=== PATIENT | female | born 1990 | race Caucasian/White ===

== ENCOUNTER 2017-03-07 08:30 | Outpatient (RCR) | payer OTHER, SELFPAY ==
[2017-02-17 00:56] VITALS: BP 130/68; PULSE 99; RESP 18; TEMP 36.5; BMI 48.0
[2017-02-21 08:41] VITALS: BP 131/77; PULSE 82; RESP 20; TEMP 36.4; BMI 48.0
--- NOTE | 2017-02-21 17:28 | PCM.WC.PN ---
Type of Wound Date of Service: 02/21/17 Chief Complaint: Ulceration of the right lateral malleolus and wound to the right dorsomedial foot History of Wound: This is a 26-year-old female who was born with spina bifida. As result, she is paraplegic and insensate below the waist. She is also morbidly obese. She presents with a pressure ulceration on the right lateral malleolus, which is a recurrent ulceration, having been treated at the wound center in the past for similar problems. There is also a wound/ulceration on the dorsal medial right foot, likely due to trauma or pressure. The patient is currently using collagenase Santyl topically on a daily basis. She was recently evaluated by her primary care physician, who obtained cultures, and initiated treatment with Bactrim. Subsequently, due to the development of erythema on the dorsal aspect of her right foot, she presented to the urgent care center in [place], [place], and was treated with Bactrim double strength twice daily, which has now been completed. Progress of Wound: Stable. She has no acute complaints at this time. She is applying Santyl daily to both wounds as directed. She is insensate and so does not feel pain however they have not noted any increased discharge from the wound. She admits to wearing her boots/braces when she is in bed. - Physical Exam Vital Signs Temp Pulse Resp BP 97.5 F L 82 20 H 131/77 H 02/21/17 08:41 02/21/17 08:41 02/21/17 08:41 02/21/17 08:41 General: Alert, Oriented x3, Cooperative, No apparent distress HEENT: Atraumatic Oral: Moist Mucosa Neck: Supple, No JVD Lungs: Normal air movement Cardiovascular: Regular rate Extremities: No clubbing Wound Measurements and Assessment - Nurse 1 - General Ulcer Measurement Start: 02/21/17 08:41 Freq: Status: Active Protocol: Activity Type Activity Date Activity User E-Sign Co-Sign Detail Recorded Client Recorded Date Recorded By Document 02/21/17 08:41 RUBY [id number] 02/21/17 08:58 RUBY 02/21/17 08:41 Wound Center Nurse 1 [Ulcer Assessment Protocol: EMILIA.WD.LOC] #3 Right Dorsal Medial Foot -Combined with other wound No -Current Size (cm) - Length 1.5 -Current Size (cm) - Width 2.2 -Current Size (cm) - Depth 0.1 -Total Square Cm 3.30 -Date of Last Picture (Recall this 02/14/17 field) -Photo Taken No -Epithelialization None Present -Tunneling No -Undermining/Tunneling No -Circular Undermining No -Classification - Thickness Full Thickness with Exposed Support Structure -Exudate Amt Medium (34-66%) -Exudate Type Serosanguineous -Wound Margin Distinct, Outline Attached -Granulation Amt Large (67-100%) -Granulation Quality Hyper- granulation Red -Slough/Fibrin Yes -Necrosis Amt None Present (0 %) -Necrotic Tissue Type Adherent Slough -Structure Exposed Fat Layer Exposed -Texture (Lorrie-wound Skin Appearance) No Abnormality Localized Edema -Moisture (Lorrie-wound Skin Appearance No Abnormality ) -Color (Lorrie-wound Skin Appearance) No Abnormality -Temperature (Lorrie-wound Skin No Abnormality Appearance) (Pt Warm) -Tenderness on Palpation (Lorrie-wound No Skin Appearance) -Ulcer Cleansing Rinsed/ Irrigated with Saline -Foul Odor after Cleansing No -Anesthetic Used 4% Lidocaine Solution #3/1 R Lat Ankle -Combined with other wound No -Current Size (cm) - Length 2.9 -Current Size (cm) - Width 3.0 -Current Size (cm) - Depth 0.1 -Total Square Cm 8.70 -Date of Last Picture (Recall this 02/14/17 field) -Photo Taken No -Epithelialization None Present -Tunneling No -Undermining/Tunneling No -Circular Undermining No -Classification - Thickness Full Thickness with Exposed Support Structure -Classification - Pressure Ulcer Stage 2 -Exudate Amt Medium (34-66%) -Exudate Type Serosanguineous -Wound Margin Distinct, Outline Attached -Granulation Amt Small (1-33%) -Granulation Quality Red -Slough/Fibrin Yes -Necrosis Amt Small (1-33%) -Necrotic Tissue Type Adherent Slough -Structure Exposed Fat Layer Exposed -Texture (Lorrie-wound Skin Appearance) No Abnormality Localized Edema -Moisture (Lorrie-wound Skin Appearance No Abnormality ) -Color (Lorrie-wound Skin Appearance) No Abnormality -Temperature (Lorrie-wound Skin No Abnormality Appearance) (Pt Warm) -Tenderness on Palpation (Lorrie-wound No Skin Appearance) -Ulcer Cleansing Rinsed/ Irrigated with Saline -Foul Odor after Cleansing No -Anesthetic Used 4% Lidocaine Solution [Edema Assessment] -Lower Limb Edema Present Yes -Point of measurement (cm from the 52.7 medial instep) -Point of Measurement (cm from the 25.5 medial instep) Neurological: Cranial nerves II-XII grossly intact, Neuro grossly intact Psych/Mental Status: Alert and oriented to time, place, person, mood and affect Debridement Note Wound debrided: Right Dorsal Pressure Ulcer Stage Wound Grade/Stage: Stage II Type of Debridement: Excisional debridement Anesthesia Used: 4% Lidocaine Solution Depth: Down to and including healthy tissue, in the subcutaneous layer Percentage of wound debrided: 100 Instrument Used: 5mm curette Tissue Removed: Biofilm, Slough, Minimal Necrotic tissue/eschar Amount of bleeding with debridement: Mild Bleeding Controlled with: Pressure Patient tolerated procedure well - Additional Wound Wound debrided: Right medial ankle wound Type of Debridement: Excisional debridement Anesthesia Used: 4% Lidocaine Solution Depth: Down to and including healthy tissue, in the subcutaneous layer Percentage of wound debrided: 100 Instrument Used: 5mm curette Tissue Removed: Slough,Biofilm Amount of bleeding with debridement: Mild Bleeding Controlled with: Pressure Patient tolerated procedure: Patient tolerated procedure well Assessment/Plan Assessment: Right lateral ankle pressure ulcer stage III. Right dorsal medial foot wound. Spina bifida. Morbid obesity. Hypothyroidism Plan: Both wounds were debrided today, patient tolerated this well. Right heel pressure ulcer seemed to have increased in width but not depth. There is also increased erythema of the lateral plantar foot. Patient admits to not wearing her boot/brace at all times only when in bed. Also admits to pressure over the heel occasionally. Advised to wear her boot/brace all the time. Will switch dressing to Promogran daily. I believe she would be a candidate for advance wound therapy ( Skin substitute) due to the chronicity of the wound and failure of conservative measures. Continue SurePress wraps. Continue adequate nutrition high in protein and vitamin C supplements. Follow-up in 1 week. This note was generated with [employer] software. It may contain incorrect words, spelling, and punctuation that were not noted in checking the note before signing.
[2017-02-28 08:42] VITALS: BP 132/81; PULSE 93; RESP 20; TEMP 37; BMI 48.0
--- NOTE | 2017-02-28 15:50 | PCM.WC.PN ---
(1) Decubitus ulcer of dorsum of foot, stage 3 Status: Chronic Code(s): L89.893 - Pressure ulcer of other site, stage 3 (2) Cellulitis of right foot Status: Acute Code(s): L03.115 - Cellulitis of right lower limb (3) Pressure ulcer of right ankle, stage 2 Status: Chronic Code(s): L89.512 - Pressure ulcer of right ankle, stage 2 Type of Wound Date of Service: 02/28/17 Chief Complaint: Ulceration of the right lateral malleolus and wound to the right dorsomedial foot History of Wound: This is a 26-year-old female who was born with spina bifida. As result, she is paraplegic and insensate below the waist. She is also morbidly obese. She presents with a pressure ulceration on the right lateral malleolus, which is a recurrent ulceration, having been treated at the wound center in the past for similar problems. There is also a wound/ulceration on the dorsal medial right foot, likely due to trauma or pressure. The patient is currently using collagenase Santyl topically on a daily basis. She was recently evaluated by her primary care physician, who obtained cultures, and initiated treatment with Bactrim. Subsequently, due to the development of erythema on the dorsal aspect of her right foot, she presented to the urgent care center in [place], [place], and was treated with Bactrim double strength twice daily, which has now been completed. Progress of Wound: She reports increased foot swelling and redness over the past week. She had been to see her primary care physician however no interventions or medications offered. No culture was done also. She denies increased discharge however she had noted mild chills and subjective fever. - Physical Exam Vital Signs Temp Pulse Resp BP 98.6 F 93 20 H 132/81 H 02/28/17 08:42 02/28/17 08:42 02/28/17 08:42 02/28/17 08:42 General: Alert, Oriented x3, Cooperative, No apparent distress HEENT: Atraumatic, Normocephalic Oral: Moist Mucosa Neck: Supple, No JVD Lungs: Normal air movement Cardiovascular: Regular rate Abdomen: Soft, Non Tender Extremities: - - Edema, erythema and differential warmth of right foot appreciated. Wound Measurements and Assessment WC - Nurse 1 - General Ulcer Measurement Start: 02/21/17 08:41 Freq: Status: Active Protocol: Activity Type Activity Date Activity User E-Sign Co-Sign Detail Recorded Client Recorded Date Recorded By Document 02/28/17 08:42 DL [id number] 02/28/17 08:53 DL 02/28/17 08:42 Wound Center Nurse 1 [Ulcer Assessment Protocol: WC.WD.LOC] #3 Right Dorsal Medial Foot -Current Size (cm) - Length 1 -Current Size (cm) - Width 2.3 -Current Size (cm) - Depth 0.3 -Total Square Cm 2.3 -Photo Taken No -Exudate Amt Medium (34-66%) -Exudate Type Serosanguineous -Wound Margin Distinct, Outline Attached -Granulation Amt Medium (34-66%) -Granulation Quality Red -Necrosis Amt Medium (34-66%) -Necrotic Tissue Type Adherent Slough -Structure Exposed N/A -Texture (Lorrie-wound Skin Appearance) Excoriation Friable -Color (Lorrie-wound Skin Appearance) Erythema -Temperature (Lorrie-wound Skin No Abnormality Appearance) (Pt Warm) -Tenderness on Palpation (Lorrie-wound No Skin Appearance) -Ulcer Cleansing Rinsed/ Irrigated with Saline -Foul Odor after Cleansing No -Anesthetic Used 4% Lidocaine Solution #3/1 R Lat Ankle -Current Size (cm) - Length 2.6 -Current Size (cm) - Width 2.2 -Current Size (cm) - Depth 0.2 -Total Square Cm 5.72 -Photo Taken No -Exudate Amt Medium (34-66%) -Exudate Type Serosanguineous -Wound Margin Distinct, Outline Attached -Granulation Amt Medium (34-66%) -Granulation Quality Red -Necrosis Amt Medium (34-66%) -Necrotic Tissue Type Adherent Slough -Structure Exposed N/A -Texture (Lorrie-wound Skin Appearance) Localized Edema -Moisture (Lorrie-wound Skin Appearance No Abnormality ) -Color (Lorrie-wound Skin Appearance) Erythema Rubor -Temperature (Lorrie-wound Skin No Abnormality Appearance) (Pt Warm) -Ulcer Cleansing Rinsed/ Irrigated with Saline -Foul Odor after Cleansing No -Anesthetic Used 4% Lidocaine Solution [Edema Assessment] -Right Calf (cm) 37.5 -Right Ankle (cm) 25 WC - Nurse 2 - General Ulcer CM Notes Start: 02/21/17 08:41 Freq: Status: Active Protocol: Activity Type Activity Date Activity User E-Sign Co-Sign Detail Recorded Client Recorded Date Recorded By Document 02/28/17 09:43 DV [id number] 02/28/17 09:53 DV 02/28/17 09:43 Wound Center Nurse 2 [Procedure/Treatment] #3 Right Dorsal Medial Foot -Time 09:46 -Correct Patient Yes -Correct Side, Site, Position Yes -Correct Procedure Yes -Procedure Performed Yes -Type of Procedure Debridement -Clinical Debridement Subcutaneous -Post Debridement Size (cm) - Length 1.9 -Post Debridement Size (cm) - Width 3.0 -Post Debridement Size (cm) - Depth 0.6 -Total Square Cm 5.70 -Wound/Ulcer Outcome Not Healed -Ulcer Cleansing Rinsed/ Irrigated with Saline -Foul Odor after Cleansing No -Bioengineered Tissue No -Cetacaine Clyde No -Bleeding Controlled with Pressure -Treatment Response Procedure Tolerated Well #3/1 R Lat Ankle -Time 09:52 -Correct Patient Yes -Correct Side, Site, Position Yes -Correct Procedure Yes -Procedure Performed Yes -Type of Procedure Debridement -Clinical Debridement Subcutaneous -Post Debridement Size (cm) - Length 2.5 -Post Debridement Size (cm) - Width 2.5 -Post Debridement Size (cm) - Depth 0.1 -Total Square Cm 6.25 -Wound/Ulcer Outcome Not Healed -Ulcer Cleansing Rinsed/ Irrigated with Saline -Foul Odor after Cleansing No -Bioengineered Tissue No -Cetacaine Clyde No -Bleeding Controlled with Pressure -Treatment Response Procedure Tolerated Well [See Physician Procedure note for Specifics] Pain Scale: 0-10 Numeric [Pain] -Is Patient Pain Free? Yes Neurological: Cranial nerves II-XII grossly intact Psych/Mental Status: Alert and oriented to time, place, person, mood and affect Debridement Note Post-Debridement Measurements/Treatment WC - Nurse 2 - General Ulcer CM Notes Start: 02/21/17 08:41 Freq: Status: Active Protocol: Activity Type Activity Date Activity User E-Sign Co-Sign Detail Recorded Client Recorded Date Recorded By Document 02/21/17 09:30 DV [id number] 02/21/17 17:33 DV Document 02/28/17 09:43 DV [id number] 02/28/17 09:53 DV 02/21/17 02/28/17 09:30 09:43 Wound Center Nurse 2 #3 Right Dorsal Medial Foot -Time 09: 09:46 -Correct Patient Yes Yes -Correct Side, Site, Position Yes Yes -Correct Procedure Yes Yes -Procedure Performed Yes Yes -Type of Procedure Debridement Debridement -Clinical Debridement Subcutaneous Subcutaneous -Post Debridement Size (cm) - Length 1.8 1.9 -Post Debridement Size (cm) - Width 2.5 3.0 -Post Debridement Size (cm) - Depth 0.2 0.6 -Total Square Cm 4.50 5.70 -Wound/Ulcer Outcome Not Healed Not Healed -Ulcer Cleansing Rinsed/ Rinsed/ Irrigated with Irrigated with Saline Saline -Foul Odor after Cleansing No No -Bioengineered Tissue No No -Cetacaine Clyde No No -Bleeding Controlled with Pressure Pressure -Treatment Response Procedure Procedure Tolerated Well Tolerated Well #3/1 R Lat Ankle -Time 09: 09:52 -Correct Patient Yes Yes -Correct Side, Site, Position Yes Yes -Correct Procedure Yes Yes -Procedure Performed Yes Yes -Type of Procedure Debridement Debridement -Clinical Debridement Subcutaneous Subcutaneous -Post Debridement Size (cm) - Length 3.4 2.5 -Post Debridement Size (cm) - Width 3.8 2.5 -Post Debridement Size (cm) - Depth 0.1 0.1 -Total Square Cm 12.92 6.25 -Wound/Ulcer Outcome Not Healed Not Healed -Ulcer Cleansing Rinsed/ Rinsed/ Irrigated with Irrigated with Saline Saline -Foul Odor after Cleansing No No -Bioengineered Tissue No No -Cetacaine Clyde No No -Bleeding Controlled with Pressure Pressure -Treatment Response Procedure Procedure Tolerated Well Tolerated Well Pain Scale: 0-10 Numeric Is Patient Pain Free? Yes Yes Wound debrided: Right dorsal wound Wound Grade/Stage: Stage 3 pressure ulcer Type of Debridement: Excisional debridement Anesthesia Used: 4% Lidocaine Solution Depth: Down to and including healthy tissue Percentage of wound debrided: 100 Instrument Used: 5mm curette Tissue Removed: Slough,Biofilm,Fibrin Amount of bleeding with debridement: Mild Bleeding Controlled with: Pressure Patient tolerated procedure well - Additional Wound Wound debrided: Right ankle wound Wound Grade/Stage: Stage 2 Type of Debridement: Excisional debridement Anesthesia Used: 4% Lidocaine Solution Depth: Down to and including healthy tissue, in the subcutaneous layer Percentage of wound debrided: 100 Instrument Used: 5mm curette Tissue Removed: Biofilm,slough Amount of bleeding with debridement: Mild Bleeding Controlled with: Pressure Assessment/Plan Assessment: Right lateral ankle pressure ulcer. Right dorsal medial foot ulcer. Spina bifida. Morbid obesity. Hypothyroidism Plan: Right foot appears cellulitic today. Increased swelling, differential warmth and erythema. Right dorsal foot wound now with exposed tendons. She reports increased discharge from the wound last week which has now resolved. She has been doing her daily dressings with Promogran as instructed. I believe patient would benefit from advanced skin care products considering she has had this wound for about 3 months. Prescription sent for Purapply. In the meantime will continue Promogran dressing to both wounds. Edema management with Surepress. Cultures taken. Will start on Keflex 500 mg 3 times daily ?7 days for cellulitis. Continue protein and vitamin C supplements. Follow-up in 1 week. This note was generated with [employer] dictation software. It may contain incorrect words, spelling, and punctuation that were not noted in checking the note before signing.
--- NOTE | 2017-02-28 16:01 | PN.PCM_ITS ---
(1) Decubitus ulcer of dorsum of foot, stage 3 Status: Chronic Code(s): L89.893 - Pressure ulcer of other site, stage 3 (2) Cellulitis of right foot Status: Acute Code(s): L03.115 - Cellulitis of right lower limb (3) Pressure ulcer of right ankle, stage 2 Status: Chronic Code(s): L89.512 - Pressure ulcer of right ankle, stage 2 Type of Wound Date of Service: 02/28/17 Chief Complaint: Ulceration of the right lateral malleolus and wound to the right dorsomedial foot History of Wound: This is a 26-year-old female who was born with spina bifida. As result, she is paraplegic and insensate below the waist. She is also morbidly obese. She presents with a pressure ulceration on the right lateral malleolus, which is a recurrent ulceration, having been treated at the wound center in the past for similar problems. There is also a wound/ulceration on the dorsal medial right foot, likely due to trauma or pressure. The patient is currently using collagenase Santyl topically on a daily basis. She was recently evaluated by her primary care physician, who obtained cultures, and initiated treatment with Bactrim. Subsequently, due to the development of erythema on the dorsal aspect of her right foot, she presented to the urgent care center in [place], [place], and was treated with Bactrim double strength twice daily, which has now been completed. Progress of Wound: She reports increased foot swelling and redness over the past week. She had been to see her primary care physician however no interventions or medications offered. No culture was done also. She denies increased discharge however she had noted mild chills and subjective fever. - Physical Exam Vital Signs Temp Pulse Resp BP 98.6 F 93 20 H 132/81 H 02/28/17 08:42 02/28/17 08:42 02/28/17 08:42 02/28/17 08:42 General: Alert, Oriented x3, Cooperative, No apparent distress HEENT: Atraumatic, Normocephalic Oral: Moist Mucosa Neck: Supple, No JVD Lungs: Normal air movement Cardiovascular: Regular rate Abdomen: Soft, Non Tender Extremities: - - Edema, erythema and differential warmth of right foot appreciated. Wound Measurements and Assessment WC - Nurse 1 - General Ulcer Measurement Start: 02/21/17 08:41 Freq: Status: Active Protocol: Activity Type Activity Date Activity User E-Sign Co-Sign Detail Recorded Client Recorded Date Recorded By Document 02/28/17 08:42 DL [id number] 02/28/17 08:53 DL 02/28/17 08:42 Wound Center Nurse 1 [Ulcer Assessment Protocol: WC.WD.LOC] #3 Right Dorsal Medial Foot -Current Size (cm) - Length 1 -Current Size (cm) - Width 2.3 -Current Size (cm) - Depth 0.3 -Total Square Cm 2.3 -Photo Taken No -Exudate Amt Medium (34-66%) -Exudate Type Serosanguineous -Wound Margin Distinct, Outline Attached -Granulation Amt Medium (34-66%) -Granulation Quality Red -Necrosis Amt Medium (34-66%) -Necrotic Tissue Type Adherent Slough -Structure Exposed N/A -Texture (Lorrie-wound Skin Appearance) Excoriation Friable -Color (Lorrie-wound Skin Appearance) Erythema -Temperature (Lorrie-wound Skin No Abnormality Appearance) (Pt Warm) -Tenderness on Palpation (Lorrie-wound No Skin Appearance) -Ulcer Cleansing Rinsed/ Irrigated with Saline -Foul Odor after Cleansing No -Anesthetic Used 4% Lidocaine Solution #3/1 R Lat Ankle -Current Size (cm) - Length 2.6 -Current Size (cm) - Width 2.2 -Current Size (cm) - Depth 0.2 -Total Square Cm 5.72 -Photo Taken No -Exudate Amt Medium (34-66%) -Exudate Type Serosanguineous -Wound Margin Distinct, Outline Attached -Granulation Amt Medium (34-66%) -Granulation Quality Red -Necrosis Amt Medium (34-66%) -Necrotic Tissue Type Adherent Slough -Structure Exposed N/A -Texture (Lorrie-wound Skin Appearance) Localized Edema -Moisture (Lorrie-wound Skin Appearance No Abnormality ) -Color (Lorrie-wound Skin Appearance) Erythema Rubor -Temperature (Lorrie-wound Skin No Abnormality Appearance) (Pt Warm) -Ulcer Cleansing Rinsed/ Irrigated with Saline -Foul Odor after Cleansing No -Anesthetic Used 4% Lidocaine Solution [Edema Assessment] -Right Calf (cm) 37.5 -Right Ankle (cm) 25 WC - Nurse 2 - General Ulcer CM Notes Start: 02/21/17 08:41 Freq: Status: Active Protocol: Activity Type Activity Date Activity User E-Sign Co-Sign Detail Recorded Client Recorded Date Recorded By Document 02/28/17 09:43 DV [id number] 02/28/17 09:53 DV 02/28/17 09:43 Wound Center Nurse 2 [Procedure/Treatment] #3 Right Dorsal Medial Foot -Time 09:46 -Correct Patient Yes -Correct Side, Site, Position Yes -Correct Procedure Yes -Procedure Performed Yes -Type of Procedure Debridement -Clinical Debridement Subcutaneous -Post Debridement Size (cm) - Length 1.9 -Post Debridement Size (cm) - Width 3.0 -Post Debridement Size (cm) - Depth 0.6 -Total Square Cm 5.70 -Wound/Ulcer Outcome Not Healed -Ulcer Cleansing Rinsed/ Irrigated with Saline -Foul Odor after Cleansing No -Bioengineered Tissue No -Cetacaine [place] No -Bleeding Controlled with Pressure -Treatment Response Procedure Tolerated Well #3/1 R Lat Ankle -Time 09:52 -Correct Patient Yes -Correct Side, Site, Position Yes -Correct Procedure Yes -Procedure Performed Yes -Type of Procedure Debridement -Clinical Debridement Subcutaneous -Post Debridement Size (cm) - Length 2.5 -Post Debridement Size (cm) - Width 2.5 -Post Debridement Size (cm) - Depth 0.1 -Total Square Cm 6.25 -Wound/Ulcer Outcome Not Healed -Ulcer Cleansing Rinsed/ Irrigated with Saline -Foul Odor after Cleansing No -Bioengineered Tissue No -Cetacaine [place] No -Bleeding Controlled with Pressure -Treatment Response Procedure Tolerated Well [See Physician Procedure note for Specifics] Pain Scale: 0-10 Numeric [Pain] -Is Patient Pain Free? Yes Neurological: Cranial nerves II-XII grossly intact Psych/Mental Status: Alert and oriented to time, place, person, mood and affect Debridement Note Post-Debridement Measurements/Treatment WC - Nurse 2 - General Ulcer CM Notes Start: 02/21/17 08:41 Freq: Status: Active Protocol: Activity Type Activity Date Activity User E-Sign Co-Sign Detail Recorded Client Recorded Date Recorded By Document 02/21/17 09:30 DV [id number] 02/21/17 17:33 DV Document 02/28/17 09:43 DV [id number] 02/28/17 09:53 DV 02/21/17 02/28/17 09:30 09:43 Wound Center Nurse 2 #3 Right Dorsal Medial Foot -Time 09: 09:46 -Correct Patient Yes Yes -Correct Side, Site, Position Yes Yes -Correct Procedure Yes Yes -Procedure Performed Yes Yes -Type of Procedure Debridement Debridement -Clinical Debridement Subcutaneous Subcutaneous -Post Debridement Size (cm) - Length 1.8 1.9 -Post Debridement Size (cm) - Width 2.5 3.0 -Post Debridement Size (cm) - Depth 0.2 0.6 -Total Square Cm 4.50 5.70 -Wound/Ulcer Outcome Not Healed Not Healed -Ulcer Cleansing Rinsed/ Rinsed/ Irrigated with Irrigated with Saline Saline -Foul Odor after Cleansing No No -Bioengineered Tissue No No -Cetacaine [place] No No -Bleeding Controlled with Pressure Pressure -Treatment Response Procedure Procedure Tolerated Well Tolerated Well #3/1 R Lat Ankle -Time 09: 09:52 -Correct Patient Yes Yes -Correct Side, Site, Position Yes Yes -Correct Procedure Yes Yes -Procedure Performed Yes Yes -Type of Procedure Debridement Debridement -Clinical Debridement Subcutaneous Subcutaneous -Post Debridement Size (cm) - Length 3.4 2.5 -Post Debridement Size (cm) - Width 3.8 2.5 -Post Debridement Size (cm) - Depth 0.1 0.1 -Total Square Cm 12.92 6.25 -Wound/Ulcer Outcome Not Healed Not Healed -Ulcer Cleansing Rinsed/ Rinsed/ Irrigated with Irrigated with Saline Saline -Foul Odor after Cleansing No No -Bioengineered Tissue No No -Cetacaine [place] No No -Bleeding Controlled with Pressure Pressure -Treatment Response Procedure Procedure Tolerated Well Tolerated Well Pain Scale: 0-10 Numeric Is Patient Pain Free? Yes Yes Wound debrided: Right dorsal wound Wound Grade/Stage: Stage 3 pressure ulcer Type of Debridement: Excisional debridement Anesthesia Used: 4% Lidocaine Solution Depth: Down to and including healthy tissue Percentage of wound debrided: 100 Instrument Used: 5mm curette Tissue Removed: Slough,Biofilm,Fibrin Amount of bleeding with debridement: Mild Bleeding Controlled with: Pressure Patient tolerated procedure well - Additional Wound Wound debrided: Right ankle wound Wound Grade/Stage: Stage 2 Type of Debridement: Excisional debridement Anesthesia Used: 4% Lidocaine Solution Depth: Down to and including healthy tissue, in the subcutaneous layer Percentage of wound debrided: 100 Instrument Used: 5mm curette Tissue Removed: Biofilm,slough Amount of bleeding with debridement: Mild Bleeding Controlled with: Pressure Assessment/Plan Assessment: Right lateral ankle pressure ulcer. Right dorsal medial foot ulcer. Spina bifida. Morbid obesity. Hypothyroidism Plan: Right foot appears cellulitic today. Increased swelling, differential warmth and erythema. Right dorsal foot wound now with exposed tendons. She reports increased discharge from the wound last week which has now resolved. She has been doing her daily dressings with Promogran as instructed. I believe patient would benefit from advanced skin care products considering she has had this wound for about 3 months. Prescription sent for Purapply. In the meantime will continue Promogran dressing to both wounds. Edema management with Surepress. Cultures taken. Will start on Keflex 500 mg 3 times daily ?7 days for cellulitis. Continue protein and vitamin C supplements. Follow-up in 1 week. This note was generated with [employer] dictation software. It may contain incorrect words, spelling, and punctuation that were not noted in checking the note before signing.
[2017-03-07 08:39] VITALS: BP 152/83; PULSE 93; RESP 18; TEMP 35.9; BMI 48.0
--- NOTE | 2017-03-07 14:02 | PCM.WC.PN ---
(1) Decubitus ulcer of dorsum of foot, stage 3 Status: Chronic Current Visit: Yes Code(s): L89.893 - Pressure ulcer of other site, stage 3 (2) Cellulitis of right foot Status: Acute Current Visit: No Code(s): L03.115 - Cellulitis of right lower limb (3) Pressure ulcer of right ankle, stage 2 Status: Chronic Current Visit: Yes Code(s): L89.512 - Pressure ulcer of right ankle, stage 2 Type of Wound Date of Service: 03/07/17 Chief Complaint: Ulceration of the right lateral malleolus and wound to the right dorsomedial foot History of Wound: This is a 26-year-old female who was born with spina bifida. As result, she is paraplegic and insensate below the waist. She is also morbidly obese. She presents with a pressure ulceration on the right lateral malleolus, which is a recurrent ulceration, having been treated at the wound center in the past for similar problems. There is also a wound/ulceration on the dorsal medial right foot, likely due to trauma or pressure. The patient is currently using collagenase Santyl topically on a daily basis. She was recently evaluated by her primary care physician, who obtained cultures, and initiated treatment with Bactrim. Subsequently, due to the development of erythema on the dorsal aspect of her right foot, she presented to the urgent care center in [place], [place], and was treated with Bactrim double strength twice daily, which has now been completed. Progress of Wound: Improving. She has no acute complaints at this time. she is currently on her antibiotics. - Physical Exam Vital Signs Temp Pulse Resp BP 96.6 F L 93 18 152/83 H 03/07/17 08:39 03/07/17 08:39 03/07/17 08:39 03/07/17 08:39 General: Alert, Oriented x3, Cooperative, No apparent distress HEENT: Atraumatic, Normocephalic Oral: Moist Mucosa Neck: Supple, No JVD Lungs: Normal air movement Abdomen: Soft, Non Tender Extremities: Edema - Bilateral. Predominantly around the foot. Wound Measurements and Assessment WC - Nurse 1 - General Ulcer Measurement Start: 02/21/17 08:41 Freq: Status: Active Protocol: Activity Type Activity Date Activity User E-Sign Co-Sign Detail Recorded Client Recorded Date Recorded By Document 03/07/17 08:39 DL [id number] 03/07/17 08:52 DL 03/07/17 08:39 Wound Center Nurse 1 [Ulcer Assessment Protocol: WC.WD.LOC] #3 Right Dorsal Medial Foot -Current Size (cm) - Length 1.3 -Current Size (cm) - Width 2.4 -Current Size (cm) - Depth 0.2 -Total Square Cm 3.12 -Photo Taken No -Exudate Amt Medium (34-66%) -Exudate Type Serosanguineous -Wound Margin Distinct, Outline Attached -Granulation Amt Large (67-100%) -Granulation Quality Red -Necrosis Amt Small (1-33%) -Necrotic Tissue Type Adherent Slough -Structure Exposed N/A -Texture (Lorrie-wound Skin Appearance) Scarring -Moisture (Lorrie-wound Skin Appearance No Abnormality ) -Color (Lorrie-wound Skin Appearance) No Abnormality -Temperature (Lorrie-wound Skin No Abnormality Appearance) (Pt Warm) -Ulcer Cleansing Rinsed/ Irrigated with Saline -Foul Odor after Cleansing No -Anesthetic Used 4% Lidocaine Solution #3/1 R Lat Ankle -Current Size (cm) - Length 2.2 -Current Size (cm) - Width 1.8 -Current Size (cm) - Depth 0.1 -Total Square Cm 3.96 -Photo Taken No -Exudate Amt Small (1-33%) -Exudate Type Serosanguineous -Wound Margin Distinct, Outline Attached -Granulation Amt Small (1-33%) -Granulation Quality [place] -Necrosis Amt Large (67-100%) -Necrotic Tissue Type Adherent Slough -Structure Exposed N/A -Texture (Lorrie-wound Skin Appearance) Scarring -Moisture (Lorrie-wound Skin Appearance No Abnormality ) -Color (Lorrie-wound Skin Appearance) No Abnormality -Temperature (Lorrie-wound Skin No Abnormality Appearance) (Pt Warm) -Ulcer Cleansing Rinsed/ Irrigated with Saline -Foul Odor after Cleansing No -Anesthetic Used 4% Lidocaine Solution [Edema Assessment] -Left Calf (cm) 37 -Left Ankle (cm) 24.2 WC - Nurse 2 - General Ulcer CM Notes Start: 02/21/17 08:41 Freq: Status: Active Protocol: Activity Type Activity Date Activity User E-Sign Co-Sign Detail Recorded Client Recorded Date Recorded By Document 03/07/17 09:43 DV [id number] 03/07/17 09:53 DV 03/07/17 09:43 Wound Center Nurse 2 [Procedure/Treatment] #3 Right Dorsal Medial Foot -Time 09:47 -Correct Patient Yes -Correct Side, Site, Position Yes -Correct Procedure Yes -Procedure Performed Yes -Type of Procedure Debridement -Clinical Debridement Subcutaneous -Post Debridement Size (cm) - Length 2.5 -Post Debridement Size (cm) - Width 2.0 -Post Debridement Size (cm) - Depth 0.2 -Total Square Cm 5.00 -Wound/Ulcer Outcome Not Healed -Ulcer Cleansing Rinsed/ Irrigated with Saline -Foul Odor after Cleansing No -Bioengineered Tissue No -Cetacaine [place] No -Bleeding Controlled with Pressure -Treatment Response Procedure Tolerated Well #3/ R Lat Ankle -Time 09:48 -Correct Patient Yes -Correct Side, Site, Position Yes -Correct Procedure Yes -Procedure Performed Yes -Type of Procedure Debridement -Clinical Debridement Subcutaneous -Post Debridement Size (cm) - Length 1.8 -Post Debridement Size (cm) - Width 3.0 -Post Debridement Size (cm) - Depth 0.1 -Total Square Cm 5.40 -Wound/Ulcer Outcome Not Healed -Ulcer Cleansing Rinsed/ Irrigated with Saline -Foul Odor after Cleansing No -Bioengineered Tissue No -Cetacaine [place] No -Bleeding Controlled with Pressure -Treatment Response Procedure Tolerated Well [See Physician Procedure note for Specifics] Pain Scale: 0-10 Numeric [Pain] -Is Patient Pain Free? Yes Neurological: Cranial nerves II-XII grossly intact Psych/Mental Status: Normal Affect Debridement Note Post-Debridement Measurements/Treatment WC - Nurse 2 - General Ulcer CM Notes Start: 02/21/17 08:41 Freq: Status: Active Protocol: Activity Type Activity Date Activity User E-Sign Co-Sign Detail Recorded Client Recorded Date Recorded By Document 02/21/17 09:30 DV [id number] 02/21/17 17:33 DV Document 02/28/17 09:43 DV [id number] 02/28/17 09:53 DV Document 03/07/17 09:43 DV [id number] 03/07/17 09:53 DV 02/21/17 02/28/17 03/07/17 09:30 09:43 09:43 Wound Center Nurse 2 #3 Right Dorsal Medial Foot -Time 09:30 09:46 09:47 -Correct Patient Yes Yes Yes -Correct Side, Site, Position Yes Yes Yes -Correct Procedure Yes Yes Yes -Procedure Performed Yes Yes Yes -Type of Procedure Debridement Debridement Debridement -Clinical Debridement Subcutaneous Subcutaneous Subcutaneous -Post Debridement Size (cm) - Length 1.8 1.9 2.5 -Post Debridement Size (cm) - Width 2.5 3.0 2.0 -Post Debridement Size (cm) - Depth 0.2 0.6 0.2 -Total Square Cm 4.50 5.70 5.00 -Wound/Ulcer Outcome Not Healed Not Healed Not Healed -Ulcer Cleansing Rinsed/ Rinsed/ Rinsed/ Irrigated with Irrigated with Irrigated with Saline Saline Saline -Foul Odor after Cleansing No No No -Bioengineered Tissue No No No -Cetacaine [place] No No No -Bleeding Controlled with Pressure Pressure Pressure -Treatment Response Procedure Procedure Procedure Tolerated Well Tolerated Well Tolerated Well #3/1 R Lat Ankle -Time : 09:52 09:48 -Correct Patient Yes Yes Yes -Correct Side, Site, Position Yes Yes Yes -Correct Procedure Yes Yes Yes -Procedure Performed Yes Yes Yes -Type of Procedure Debridement Debridement Debridement -Clinical Debridement Subcutaneous Subcutaneous Subcutaneous -Post Debridement Size (cm) - Length 3.4 2.5 1.8 -Post Debridement Size (cm) - Width 3.8 2.5 3.0 -Post Debridement Size (cm) - Depth 0.1 0.1 0.1 -Total Square Cm 12.92 6.25 5.40 -Wound/Ulcer Outcome Not Healed Not Healed Not Healed -Ulcer Cleansing Rinsed/ Rinsed/ Rinsed/ Irrigated with Irrigated with Irrigated with Saline Saline Saline -Foul Odor after Cleansing No No No -Bioengineered Tissue No No No -Cetacaine [place] No No No -Bleeding Controlled with Pressure Pressure Pressure -Treatment Response Procedure Procedure Procedure Tolerated Well Tolerated Well Tolerated Well Pain Scale: 0-10 Numeric Is Patient Pain Free? Yes Yes Yes Wound debrided: Right Dorsal Ulcer Type of Debridement: Excisional debridement Anesthesia Used: 4% Lidocaine Solution Depth: Down to and including healthy tissue, in the subcutaneous layer Percentage of wound debrided: 100 Instrument Used: 5mm curette Tissue Removed: Slough, Biofilm Amount of bleeding with debridement: Mild Bleeding Controlled with: Compression and gauze Patient tolerated procedure well - Additional Wound Wound debrided: Right ankle wound Type of Debridement: Excisional debridement Anesthesia Used: 4% Lidocaine Solution Depth: Down to and including healthy tissue, in the subcutaneous layer Percentage of wound debrided: 100 Instrument Used: 5mm curette Tissue Removed: Slough,Biofilm Amount of bleeding with debridement: Mild Bleeding Controlled with: Compression and gauze Patient tolerated procedure: Patient tolerated procedure well Assessment/Plan Active Problems Pressure ulcer of right ankle, stage 2 (Chronic) Decubitus ulcer of dorsum of foot, stage 3 (Chronic) Assessment: Right lateral ankle pressure ulcer. Right dorsal medial foot ulcer. Spina bifida. Morbid obesity. Hypothyroidism Plan: Cellulitis of right foot has resolved for the most part and the dorsal wound has less discharge/slough. No exposed tendons visible today also.Continue antibiotic for 1 more week. Continue promogran dressing daily with adaptic covering. Continue surepress wrap daily and wear boots for off loading. Continue high protein diet. Will follow up with insurance company for Purapply approval as christoph hinojosa patient will benfit from this due to chronicity of the wound. Follow-up in 1 week. This note was generated with [employer] dictation software. It may contain incorrect words, spelling, and punctuation that were not noted in checking the note before signing.
--- NOTE | 2017-03-07 14:18 | PN.PCM_ITS ---
(1) Decubitus ulcer of dorsum of foot, stage 3 Status: Chronic Current Visit: Yes Code(s): L89.893 - Pressure ulcer of other site, stage 3 (2) Cellulitis of right foot Status: Acute Current Visit: No Code(s): L03.115 - Cellulitis of right lower limb (3) Pressure ulcer of right ankle, stage 2 Status: Chronic Current Visit: Yes Code(s): L89.512 - Pressure ulcer of right ankle, stage 2 Type of Wound Date of Service: 03/07/17 Chief Complaint: Ulceration of the right lateral malleolus and wound to the right dorsomedial foot History of Wound: This is a 26-year-old female who was born with spina bifida. As result, she is paraplegic and insensate below the waist. She is also morbidly obese. She presents with a pressure ulceration on the right lateral malleolus, which is a recurrent ulceration, having been treated at the wound center in the past for similar problems. There is also a wound/ulceration on the dorsal medial right foot, likely due to trauma or pressure. The patient is currently using collagenase Santyl topically on a daily basis. She was recently evaluated by her primary care physician, who obtained cultures, and initiated treatment with Bactrim. Subsequently, due to the development of erythema on the dorsal aspect of her right foot, she presented to the urgent care center in [place], [place], and was treated with Bactrim double strength twice daily, which has now been completed. Progress of Wound: Improving. She has no acute complaints at this time. she is currently on her antibiotics. - Physical Exam Vital Signs Temp Pulse Resp BP 96.6 F L 93 18 152/83 H 03/07/17 08:39 03/07/17 08:39 03/07/17 08:39 03/07/17 08:39 General: Alert, Oriented x3, Cooperative, No apparent distress HEENT: Atraumatic, Normocephalic Oral: Moist Mucosa Neck: Supple, No JVD Lungs: Normal air movement Abdomen: Soft, Non Tender Extremities: Edema - Bilateral. Predominantly around the foot. Wound Measurements and Assessment WC - Nurse 1 - General Ulcer Measurement Start: 02/21/17 08:41 Freq: Status: Active Protocol: Activity Type Activity Date Activity User E-Sign Co-Sign Detail Recorded Client Recorded Date Recorded By Document 03/07/17 08:39 DL [id number] 03/07/17 08:52 DL 03/07/17 08:39 Wound Center Nurse 1 [Ulcer Assessment Protocol: WC.WD.LOC] #3 Right Dorsal Medial Foot -Current Size (cm) - Length 1.3 -Current Size (cm) - Width 2.4 -Current Size (cm) - Depth 0.2 -Total Square Cm 3.12 -Photo Taken No -Exudate Amt Medium (34-66%) -Exudate Type Serosanguineous -Wound Margin Distinct, Outline Attached -Granulation Amt Large (67-100%) -Granulation Quality Red -Necrosis Amt Small (1-33%) -Necrotic Tissue Type Adherent Slough -Structure Exposed N/A -Texture (Lorrie-wound Skin Appearance) Scarring -Moisture (Lorrie-wound Skin Appearance No Abnormality ) -Color (Lorrie-wound Skin Appearance) No Abnormality -Temperature (Lorrie-wound Skin No Abnormality Appearance) (Pt Warm) -Ulcer Cleansing Rinsed/ Irrigated with Saline -Foul Odor after Cleansing No -Anesthetic Used 4% Lidocaine Solution #3/1 R Lat Ankle -Current Size (cm) - Length 2.2 -Current Size (cm) - Width 1.8 -Current Size (cm) - Depth 0.1 -Total Square Cm 3.96 -Photo Taken No -Exudate Amt Small (1-33%) -Exudate Type Serosanguineous -Wound Margin Distinct, Outline Attached -Granulation Amt Small (1-33%) -Granulation Quality Sexton -Necrosis Amt Large (67-100%) -Necrotic Tissue Type Adherent Slough -Structure Exposed N/A -Texture (Lorrie-wound Skin Appearance) Scarring -Moisture (Lorrie-wound Skin Appearance No Abnormality ) -Color (Lorrie-wound Skin Appearance) No Abnormality -Temperature (Lorrie-wound Skin No Abnormality Appearance) (Pt Warm) -Ulcer Cleansing Rinsed/ Irrigated with Saline -Foul Odor after Cleansing No -Anesthetic Used 4% Lidocaine Solution [Edema Assessment] -Left Calf (cm) 37 -Left Ankle (cm) 24.2 WC - Nurse 2 - General Ulcer CM Notes Start: 02/21/17 08:41 Freq: Status: Active Protocol: Activity Type Activity Date Activity User E-Sign Co-Sign Detail Recorded Client Recorded Date Recorded By Document 03/07/17 09:43 DV [id number] 03/07/17 09:53 DV 03/07/17 09:43 Wound Center Nurse 2 [Procedure/Treatment] #3 Right Dorsal Medial Foot -Time 09:47 -Correct Patient Yes -Correct Side, Site, Position Yes -Correct Procedure Yes -Procedure Performed Yes -Type of Procedure Debridement -Clinical Debridement Subcutaneous -Post Debridement Size (cm) - Length 2.5 -Post Debridement Size (cm) - Width 2.0 -Post Debridement Size (cm) - Depth 0.2 -Total Square Cm 5.00 -Wound/Ulcer Outcome Not Healed -Ulcer Cleansing Rinsed/ Irrigated with Saline -Foul Odor after Cleansing No -Bioengineered Tissue No -Cetacaine Imperial No -Bleeding Controlled with Pressure -Treatment Response Procedure Tolerated Well #3/ R Lat Ankle -Time 09:48 -Correct Patient Yes -Correct Side, Site, Position Yes -Correct Procedure Yes -Procedure Performed Yes -Type of Procedure Debridement -Clinical Debridement Subcutaneous -Post Debridement Size (cm) - Length 1.8 -Post Debridement Size (cm) - Width 3.0 -Post Debridement Size (cm) - Depth 0.1 -Total Square Cm 5.40 -Wound/Ulcer Outcome Not Healed -Ulcer Cleansing Rinsed/ Irrigated with Saline -Foul Odor after Cleansing No -Bioengineered Tissue No -Cetacaine Imperial No -Bleeding Controlled with Pressure -Treatment Response Procedure Tolerated Well [See Physician Procedure note for Specifics] Pain Scale: 0-10 Numeric [Pain] -Is Patient Pain Free? Yes Neurological: Cranial nerves II-XII grossly intact Psych/Mental Status: Normal Affect Debridement Note Post-Debridement Measurements/Treatment WC - Nurse 2 - General Ulcer CM Notes Start: 02/21/17 08:41 Freq: Status: Active Protocol: Activity Type Activity Date Activity User E-Sign Co-Sign Detail Recorded Client Recorded Date Recorded By Document 02/21/17 09:30 DV [id number] 02/21/17 17:33 DV Document 02/28/17 09:43 DV [id number] 02/28/17 09:53 DV Document 03/07/17 09:43 DV [id number] 03/07/17 09:53 DV 02/21/17 02/28/17 03/07/17 09:30 09:43 09:43 Wound Center Nurse 2 #3 Right Dorsal Medial Foot -Time 09:30 09:46 09:47 -Correct Patient Yes Yes Yes -Correct Side, Site, Position Yes Yes Yes -Correct Procedure Yes Yes Yes -Procedure Performed Yes Yes Yes -Type of Procedure Debridement Debridement Debridement -Clinical Debridement Subcutaneous Subcutaneous Subcutaneous -Post Debridement Size (cm) - Length 1.8 1.9 2.5 -Post Debridement Size (cm) - Width 2.5 3.0 2.0 -Post Debridement Size (cm) - Depth 0.2 0.6 0.2 -Total Square Cm 4.50 5.70 5.00 -Wound/Ulcer Outcome Not Healed Not Healed Not Healed -Ulcer Cleansing Rinsed/ Rinsed/ Rinsed/ Irrigated with Irrigated with Irrigated with Saline Saline Saline -Foul Odor after Cleansing No No No -Bioengineered Tissue No No No -Cetacaine Imperial No No No -Bleeding Controlled with Pressure Pressure Pressure -Treatment Response Procedure Procedure Procedure Tolerated Well Tolerated Well Tolerated Well #3/1 R Lat Ankle -Time : 09:52 09:48 -Correct Patient Yes Yes Yes -Correct Side, Site, Position Yes Yes Yes -Correct Procedure Yes Yes Yes -Procedure Performed Yes Yes Yes -Type of Procedure Debridement Debridement Debridement -Clinical Debridement Subcutaneous Subcutaneous Subcutaneous -Post Debridement Size (cm) - Length 3.4 2.5 1.8 -Post Debridement Size (cm) - Width 3.8 2.5 3.0 -Post Debridement Size (cm) - Depth 0.1 0.1 0.1 -Total Square Cm 12.92 6.25 5.40 -Wound/Ulcer Outcome Not Healed Not Healed Not Healed -Ulcer Cleansing Rinsed/ Rinsed/ Rinsed/ Irrigated with Irrigated with Irrigated with Saline Saline Saline -Foul Odor after Cleansing No No No -Bioengineered Tissue No No No -Cetacaine Imperial No No No -Bleeding Controlled with Pressure Pressure Pressure -Treatment Response Procedure Procedure Procedure Tolerated Well Tolerated Well Tolerated Well Pain Scale: 0-10 Numeric Is Patient Pain Free? Yes Yes Yes Wound debrided: Right Dorsal Ulcer Type of Debridement: Excisional debridement Anesthesia Used: 4% Lidocaine Solution Depth: Down to and including healthy tissue, in the subcutaneous layer Percentage of wound debrided: 100 Instrument Used: 5mm curette Tissue Removed: Slough, Biofilm Amount of bleeding with debridement: Mild Bleeding Controlled with: Compression and gauze Patient tolerated procedure well - Additional Wound Wound debrided: Right ankle wound Type of Debridement: Excisional debridement Anesthesia Used: 4% Lidocaine Solution Depth: Down to and including healthy tissue, in the subcutaneous layer Percentage of wound debrided: 100 Instrument Used: 5mm curette Tissue Removed: Slough,Biofilm Amount of bleeding with debridement: Mild Bleeding Controlled with: Compression and gauze Patient tolerated procedure: Patient tolerated procedure well Assessment/Plan Active Problems Pressure ulcer of right ankle, stage 2 (Chronic) Decubitus ulcer of dorsum of foot, stage 3 (Chronic) Assessment: Right lateral ankle pressure ulcer. Right dorsal medial foot ulcer. Spina bifida. Morbid obesity. Hypothyroidism Plan: Cellulitis of right foot has resolved for the most part and the dorsal wound has less discharge/slough. No exposed tendons visible today also.Continue antibiotic for 1 more week. Continue promogran dressing daily with adaptic covering. Continue surepress wrap daily and wear boots for off loading. Continue high protein diet. Will follow up with insurance company for [employer] approval as christoph hinojosa patient will benfit from this due to chronicity of the wound. Follow-up in 1 week. This note was generated with [employer] dictation software. It may contain incorrect words, spelling, and punctuation that were not noted in checking the note before signing.
== END 2017-03-17 23:59 ==
LOC: WC 08:30
PROVIDERS: Visit Provider Internal Medicine
DX: L89.513 Pressure ulcer of right ankle, stage 3 (principal); L89.512 Pressure ulcer of right ankle, stage 2; E66.01 Morbid (severe) obesity due to excess calories; Z71.3 Dietary counseling and surveillance; G82.20 Paraplegia, unspecified; L89.893 Pressure ulcer of other site, stage 3; Q05.9 Spina bifida, unspecified; M79.89 Other specified soft tissue disorders; L03.115 Cellulitis of right lower limb
CPT/HCPCS: 11042; 87070; 87075; 87077; 87186; 87205

== ENCOUNTER 2017-03-21 07:45 | Outpatient (RCR) | payer OTHER, SELFPAY ==
[2017-03-18 01:12] VITALS: BP 152/83; PULSE 93; RESP 18; TEMP 35.9; BMI 48.0
== END 2017-04-17 23:59 ==
LOC: WC 07:45
PROVIDERS: Visit Provider Internal Medicine
DX: Z09 Encounter for follow-up examination after completed treatment for conditions other than malignant neoplasm (principal)

== ENCOUNTER 2017-07-31 17:04 | Outpatient (RCR) | payer OTHER, SELFPAY ==
--- NOTE | 2017-09-14 16:18 | HP.PTEVAL ---
Patient's Visit Information ONELIA MEHTA is a 26 year old F referred to Physical Therapy by Shae Ramirez DO with a diagnosis of SPINA BIFIDA - WHEELCHAIR EVALUATION. Date of Evaluation: 09/14/17 Physical Therapist: Kacy Gonzalez - Visit Plan Frequency: WHEELCHAIR EVALUATION Duration: 6 Months Plan: COMPLETE WHEELCHAIR EVALUTATION AND PAPERWORK FOR PHYSICIAN AND [employer] - Subjective Subjective: THIS PATIENT PRESENTED TO PT FOR A WHEELCHAIR EVALUATION ON 07/31/17. SHE REPORTS HER CURRENT WHEELCHAIR HAS BEEN REPAIRED/MODIFIED SEVERAL TIMES WITH ONLY PARTIAL SUCCESS. SHE REPORTS SHE HAS DEVELOPED LOW AND MID BACK PAIN WITH LIFTING FOR CHILDCARE OF 14 MONTH OLD. SHE ALSO REPORTS AN INCRASE IN BILATERAL FOOT PRESSURE SORES. SHE STATES SHE IS BEING SEEN BY THE WOUND CENTER. SHE IS REFERRED TO PT WITH A DIAGNOSIS OF SPINA BIFIDA AND SHE ALSO REPORTS SHE HAS A DIAGNOSIS OF TACCYCARDIA. PATIENT REPORTS SHE HAS NO SENSATION OR USE OF HER LE'S BUT THAT HER ARMS ARE STRONG AND SHE CAN SELF PROPEL HER WHEELCHAIR AT HOME AND IN THE COMMUNITY. SHE REPORTS BEING INVOLVED IN ADLS SUCH CLEANING HOUSE, GROOMING, DRESSING, LAUNDRY, TILETING, FOOD PREP, BATHING AND CHILDCARE. SHE ALSO HELPS WITH GROCERY SHOPPING AND OTHER SHOPPING. PATIENT DENIES DIMITRY UE AND NECK PAIN. PATIENT REPORTS SOME INDEP TRANSFERRING AT HOME BUT SHE REQUIRES ASSIST FROM HER FOR TRANSFERS LIKE GETTING ON THE EXAM TABLE AT THE DOCTORS OFFICE THAT IS HIGHER. - Objective THIS PATIENT PRESENTED TO PHYSICAL THERAPY SELF PROPELLING HER WHEELCHAIR UNLIMITED DISTANCES AND THROUGH DOORWAYS IN THE CLINIC INDEP'LY. STRENGTH AND ROM: DIMITRY LE STRENGTH IS 0/5. BLE PROM WFL IN CHAIR. DIMITRY UE STRENGTH AND ROM WFL WITH DIMITRY UE STRENGTH 5/5 WITH MMT'ING. SENSATION: NO SENSATION FROM THE WAIST DOWN. DIMITRY UE SENSATION WNL. VISIT EVAL, IN/OUT TIMES ARE APPROXIMATED. PLEASE SEE THE COMPLETED LCMP FORM FROM [employer] FOR FURTHER DETAILS. - Goals Goal 1:: PATIENT WILL RECEIVE NEW WHEELCHAIR THAT WILL ALLOW FOR INDEPENDENCE WITH ADL'S. Goal Time Frame: 12-16 Weeks - Rehabilitation Potential Rehabilitation Potential: Good - Anticipated Interventions Comments: WHEELCHAIR EVALUATION For the Purpose of:: To improve ability of physical actions for home/community/work/leisure Thank you for the opportunity to evaluate your patient. For Medicare and Medicare O plans, please review the plan of care and approve it. It will need to be FAXED BACK to us at [phone] for Medicare purposes. Please let me know if there are questions or concerns regarding this plan of care. Physician Signature: Date:
--- NOTE | 2017-09-14 16:22 | HP.PTEVAL_ITS ---
Patient's Visit Information ONELIA EMHTA is a 26 year old F referred to Physical Therapy by Shae Ramirez DO with a diagnosis of SPINA BIFIDA - WHEELCHAIR EVALUATION. Date of Evaluation: 09/14/17 Physical Therapist: Kacy Gonzalez - Visit Plan Frequency: WHEELCHAIR EVALUATION Duration: 6 Months Plan: COMPLETE WHEELCHAIR EVALUTATION AND PAPERWORK FOR PHYSICIAN AND [employer] - Subjective Subjective: THIS PATIENT PRESENTED TO PT FOR A WHEELCHAIR EVALUATION ON . SHE REPORTS HER CURRENT WHEELCHAIR HAS BEEN REPAIRED/MODIFIED SEVERAL TIMES WITH ONLY PARTIAL SUCCESS. SHE REPORTS SHE HAS DEVELOPED LOW AND MID BACK PAIN WITH LIFTING FOR CHILDCARE OF 14 MONTH OLD. SHE ALSO REPORTS AN INCRASE IN BILATERAL FOOT PRESSURE SORES. SHE STATES SHE IS BEING SEEN BY THE WOUND CENTER. SHE IS REFERRED TO PT WITH A DIAGNOSIS OF SPINA BIFIDA AND SHE ALSO REPORTS SHE HAS A DIAGNOSIS OF TACCYCARDIA. PATIENT REPORTS SHE HAS NO SENSATION OR USE OF HER LE'S BUT THAT HER ARMS ARE STRONG AND SHE CAN SELF PROPEL HER WHEELCHAIR AT HOME AND IN THE COMMUNITY. SHE REPORTS BEING INVOLVED IN ADLS SUCH CLEANING HOUSE, GROOMING, DRESSING, LAUNDRY, TILETING, FOOD PREP, BATHING AND CHILDCARE. SHE ALSO HELPS WITH GROCERY SHOPPING AND OTHER SHOPPING. PATIENT DENIES DIMITRY UE AND NECK PAIN. PATIENT REPORTS SOME INDEP TRANSFERRING AT HOME BUT SHE REQUIRES ASSIST FROM HER FOR TRANSFERS LIKE GETTING ON THE EXAM TABLE AT THE DOCTORS OFFICE THAT IS HIGHER. - Objective THIS PATIENT PRESENTED TO PHYSICAL THERAPY SELF PROPELLING HER WHEELCHAIR UNLIMITED DISTANCES AND THROUGH DOORWAYS IN THE CLINIC INDEP'LY. STRENGTH AND ROM: DIMITRY LE STRENGTH IS 0/5. BLE PROM WFL IN CHAIR. DIMITRY UE STRENGTH AND ROM WFL WITH DIMITRY UE STRENGTH 5/5 WITH MMT'ING. SENSATION: NO SENSATION FROM THE WAIST DOWN. DIMITRY UE SENSATION WNL. VISIT EVAL, IN/OUT TIMES ARE APPROXIMATED. PLEASE SEE THE COMPLETED LCMP FORM FROM [employer] FOR FURTHER DETAILS. - Goals Goal 1:: PATIENT WILL RECEIVE NEW WHEELCHAIR THAT WILL ALLOW FOR INDEPENDENCE WITH ADL'S. Goal Time Frame: 12-16 Weeks - Rehabilitation Potential Rehabilitation Potential: Good - Anticipated Interventions Comments: WHEELCHAIR EVALUATION For the Purpose of:: To improve ability of physical actions for home/community/ work/leisure Thank you for the opportunity to evaluate your patient. For Medicare and Medicare O plans, please review the plan of care and approve it. It will need to be FAXED BACK to us at [phone] for Medicare purposes. Please let me know if there are questions or concerns regarding this plan of care. Physician Signature: Date:
--- NOTE | 2018-01-02 12:27 | HP.PT.NRP ---
HP - Discharge Summary (1) - Patient Information ONELIA MEHTA was seen in my office for initial evaluation on 09/14/17. The following Plan of Care was established for this patient: Initial Frequency: WHEELCHAIR EVALUATION Initial Duration: 6 Months - Anticipated Interventions Comments: WHEELCHAIR EVALUATION For the Purpose of:: To improve ability of physical actions for home/community/work/leisure This patient was last seen in our office . Pertinent comments regarding their Physical therapy will appear below: PATIENT WAS SEEN FOR W/C ASSESSMENT ONLY At this point I will be discontinuing this patient from physical therapy. I would be happy to see this patient again in the future if found appropriate by the physician. Thank you! Kacy Gonzalez
== END 2017-07-31 19:00 | disposition home or self-care (01) ==
LOC: PT 17:04
DX: Q05.9 Spina bifida, unspecified (principal)
CPT/HCPCS: 97162

== ENCOUNTER 2021-12-13 09:00 | Outpatient (RCR) | payer BC, SELFPAY ==
[2021-11-28 14:21] VITALS: BP 144/92; PULSE 116; RESP 16; BMI 48.0
--- NOTE | 2021-11-28 15:36 | HP.PCM_ITS ---
History of Present Illness Date of Service: 11/28/21 Chief Complaint: Ulcers right History of Wound: This is a 30-year-old female who was born with spina bifida. She is paraplegic with no sensation below the waist. She presents today for ulcers on her bilateral thighs that started about three months ago. She and her have been treating them with dry gauze, but the drainage has increased recently so she was referred here. She has a medical history of spina bifida , paraplegia, pre diabetic, HgA1c 6.0, hypothyroidism. She states she is in her wheelchair all day caring for her 5 and 1 year old children. Her wheelchair cushion is from 2018. She states her wheelchair has never fit her properly. She has been treated at the wound center in the past for pressure ulcers. Today she denies any fever, chills, nausea or vomiting. Progress of Wound: Right posterior thigh cluster superior and inferior and the left posterior leg ulcers are subcutaneous. The left posterior thigh ulcer cluster is into the muscle with copious amounts of drainage, odor and she has warm, edematous, erythematous skin on her left posterior thigh from her buttock down to her left calf. [facility] Medical History (Updated 11/28/21 @ 17:14 by Maya Dawson NP, CERTIFIED MEDICINE AIDE-C) Anticoagulated Cellulitis of right foot Decubitus ulcer of dorsum of foot, stage 3 Decubitus ulcer of right heel, stage 3 Decubitus ulcer, heel, left, unstageable Edema of leg Foot ulcer, left Foot ulcer, right H/O gestational diabetes mellitus, not currently Hypothyroidism Morbid obesity with BMI of 45.0-49.9, adult Mother currently breast-feeding Paraplegia Pressure ulcer of right ankle, stage 2 Spina bifida Spina bifida aperta of lumbar spine Ulcer of foot Ulcer of right ankle Home Medications levothyroxine 75 mcg tablet 88 mcg PO DAILY 04/01/14 [History Last Taken Unknown] doxycycline monohydrate 100 mg tablet 100 mg PO BID 14 days #28 tabs 11/28/21 [Rx Last Taken Unknown] Allergy/AdvReac Type Severity Reaction Status Date / Time adhesive Allergy Rash Verified 11/28/21 14:42 Latex, Natural Rubber Allergy Hives Verified 11/28/21 14:42 vancomycin Allergy Fever and Verified 11/28/21 14:42 skin rash Surgical History History of History of foot surgery Previous back surgery Social History Smoking Status: Never smoker ROS Constitutional Constitutional: Denies change in weight, chills or fever(s) Eyes Eyes: Reports none ENT HEENT: Reports none Cardiovascular Cardiovascular: Reports leg edema; Denies chest pain, dyspnea, tachypnea or vomiting Respiratory/Chest Respiratory/Chest: Reports none Gastrointestinal Gastrointestinal: Reports none Genitourinary Genitourinary: Reports none Musculoskeletal Musculoskeletal: Reports systems reviewed and no addt'l complaints, except as documented Integumentary Integumentary: Reports systems reviewed and no addt'l complaints, except as documented and skin ulcer Neurologic Neurologic: Reports as per HPI Psychiatric Psychiatric: Reports none Endocrine Endocrinology: Reports as per HPI Hematologic/Lymphatic Hematologic/Lymphatic: Reports none Vital Signs Vital Signs Vital Signs: 11/28/21 14:21 Pulse Rate 116 H Respiratory Rate 16 Blood Pressure 144/92 H Blood Pressure Mean 109 Blood Pressure Source Monitor Blood Pressure Position Sitting Blood Pressure Location Right Forearm Oxygen Delivery Method Room Air Weight Weight: 280 lb Body Mass Index (BMI) 48.0 Physical Exam Const alert, oriented x3 and no apparent distress General Appearance: cooperative HEENT normocephalic Head and Scalp: atraumatic Eyes PERRL General Eye: normal appearance of both eyes Neck full ROM Resp normal respiratory effort and normal air movement Effort and Inspection: able to speak in complete sentences Auscultation: clear to auscultation bilaterally Cardio regular rate and regular rhythm GI soft to palpation and non-tender Extremity Extremity Narrative: Bilateral leg with edema, no sensation Skin Skin Narrative: Left posterior thigh is erythematous, swollen, red, warm to touch Wound Narrative: Right posterior thigh superior cluster ulcer and inferior cluster ulcer and the left posterior leg ulcer cluster are subcutaneous. The left posterior thigh ulcer cluster is into the muscle with copious amounts of drainage, odor and she has warm, edematous, erythematous. firm skin on her left posterior thigh from her buttock down to her left calf. Neuro oriented x3 Psych mental status grossly normal, cooperative and affect normal Debridement Note Debridement Note Wound debrided: posterior thigh ulcer cluster Laterality: Left Wound Grade/Stage: Stage IV Type of Debridement: Excisional debridement Anesthesia Used: 4% Lidocaine Solution Depth: Down to and including healthy tissue, in the subcutaneous layer and to muscle Percentage of wound debrided: 100 Instrument Used: 7mm curette Tissue Removed: Devitalized tissue Severity: Fat Layer Exposed Amount of bleeding with debridement: Mild Bleeding Controlled with: Compression and gauze Patient tolerated procedure: Patient tolerated procedure well Post-Debridement Measurements and Additional Note: Post-Debridement Measurements/Treatment - Nurse 1 - General Ulcer Assessment Start: 11/28/21 13:55 Freq: Status: Active Protocol: NIR Activity Type Activity Date Activity User E-sign Co-sign Detail Recorded Client Recorded Date Recorded By Document 11/28/21 14:21 [facility] [id number] 11/28/21 14:41 [facility] 11/28/21 14:21 - Today's Visit Information Type of service Initial Visit Arrival Mode Wheelchair Transfer Assistance Other Transfer Assist (Other) 2 ASSIST Accompanied by Patient Identification Verified (Name & Yes ) Patient Requires Transmission-Based No Precautions Height and Weight Height 5 ft 4 in Weight 280 lb Weight in Pounds 280.0 lbs Weight Measurement Method Stated by Patient Body Mass Index (BMI) 48.0 BMI Classification Obese BSA - Joanne 2.26 Vital Signs Pulse Rate (60-100) 116 H Pulse Location Monitor Respiratory Rate (12-18) 16 Respiratory rate source Observation Oxygen Delivery Method Room Air Blood Pressure (90/60-120/80) 144/92 H Blood Pressure Mean (mm Hg) 109 Source Monitor Position Sitting Blood Pressure Location Right Forearm Pain Scale: 0-10 Numeric Is Patient Pain Free? Yes - Nurse 1 - General Ulcer Measurement Start: 11/28/21 13:55 Freq: Status: Active Protocol: Activity Type Activity Date Activity User E-sign Co-sign Detail Recorded Client Recorded Date Recorded By Document 11/28/21 14:21 [facility] [id number] 11/28/21 14:41 [facility] 11/28/21 14:21 Wound Center Nurse 1 #7- R inferior thigh -Combined with other wound No -Current Size (cm) - Length 1.5 -Current Size (cm) - Width 1 -Current Size (cm) - Depth 0.1 -Total Square Cm 1.5 -Date of Last Picture (Recall this 11/28/21 field) -Photo Taken Yes -Epithelialization None Present -Tunneling No -Undermining/Tunneling No -Circular Undermining No -Exudate Amt Medium -Exudate Type Serosanguineous -Wound Margin Distinct, Outline Attached -Granulation Amt Small (1-33%) -Granulation Quality [place] -Slough/Fibrin Yes -Necrosis Amt Large (67-100%) -Necrotic Tissue Type Adherent Slough -Texture (Lorrie-wound Skin Appearance) Assessed, Scarring -Moisture (Lorrie-wound Skin Appearance) Assessed,Dry/ Scaly -Color (Lorrie-wound Skin Appearance) Assessed, Erythema -Temperature (Lorrie-wound Skin No Abnormality Appearance) (Pt Warm) -Tenderness on Palpation (Lorrie-wound No Skin Appearance) -Ulcer Cleansing Soap and Water -Foul Odor after Cleansing No #6- R UPPER POST THIGH -Combined with other wound No -Current Size (cm) - Length 5.5 -Current Size (cm) - Width 3 -Current Size (cm) - Depth 0.1 -Total Square Cm 16.5 -Date of Last Picture (Recall this 11/28/21 field) -Photo Taken Yes -Epithelialization None Present -Tunneling No -Undermining/Tunneling No -Circular Undermining No -Exudate Amt Large -Exudate Type Serosanguineous -Wound Margin Distinct, Outline Attached -Granulation Amt Large (67-100%) -Granulation Quality Red -Slough/Fibrin Yes -Necrosis Amt Small (1-33%) -Necrotic Tissue Type Adherent Slough -Texture (Lorrie-wound Skin Appearance) Assessed, Scarring,Rash -Moisture (Lorrie-wound Skin Appearance) Assessed -Color (Lorrie-wound Skin Appearance) Assessed, Erythema -Temperature (Lorrie-wound Skin No Abnormality Appearance) (Pt Warm) -Tenderness on Palpation (Lorrie-wound No Skin Appearance) -Ulcer Cleansing Soap and Water -Foul Odor after Cleansing No #5- L UPPER POST THIGH CLUSTER -Combined with other wound No -Current Size (cm) - Length 13.5 -Current Size (cm) - Width 22.5 -Current Size (cm) - Depth 0.4 -Total Square Cm 303.75 -Date of Last Picture (Recall this 11/28/21 field) -Photo Taken Yes -Epithelialization None Present -Tunneling No -Undermining/Tunneling No -Circular Undermining No -Exudate Amt Large -Exudate Type Serosanguineous -Wound Margin Distinct, Outline Attached -Granulation Amt Large (67-100%) -Granulation Quality Red -Slough/Fibrin Yes -Necrosis Amt Small (1-33%) -Necrotic Tissue Type Adherent Slough -Texture (Lorrie-wound Skin Appearance) Assessed, Excoriation, Scarring -Moisture (Lorrie-wound Skin Appearance) Assessed,Dry/ Scaly -Color (Lorrie-wound Skin Appearance) Assessed, Erythema -Temperature (Lorrie-wound Skin No Abnormality Appearance) (Pt Warm) -Tenderness on Palpation (Lorrie-wound No Skin Appearance) -Ulcer Cleansing Soap and Water -Foul Odor after Cleansing No WC - Nurse 2 - General Ulcer CM Notes Start: 11/28/21 13:55 Freq: Status: Active Protocol: Activity Type Activity Date Activity User E-sign Co-sign Detail Recorded Client Recorded Date Recorded By Document 11/28/21 15:01 [id number] 11/28/21 15:21 11/28/21 15:01 Wound Center Nurse 2 8-left posterior calf -Time 15:18 -Correct Patient Yes -Correct Side, Site, Position Yes -Correct Procedure Yes -Procedure Performed Yes -Type of Procedure Debridement -Clinical Debridement Subcutaneous -Tissue Removed Subcutaneous -Post Debridement (cm) - Length 3.0 -Post Debridement (cm) - Width 4.2 -Post Debridement (cm) - Depth 0.1 -Total Square (Post) (cm) 12.60 -Area of Debridement (cm) - Length 3.0 -Area of Debridement (cm) - Width 4.2 -Total Square (Area) (cm) 12.60 -Tunneling No -Undermining/Tunneling No -Circular Undermining No -Wound/Ulcer Outcome Not Healed -Ulcer Cleansing Rinsed/ Irrigated with Saline -Foul Odor after Cleansing No -Bioengineered Tissue No -Bleeding Controlled with Pressure -Treatment Response Procedure Tolerated Well -Offloading No -Pressure Reduction Wheelchair cushion -Debridement - Subq, 1st 20sq cm No #7- R inferior thigh -Time 15:11 -Correct Patient Yes -Correct Side, Site, Position Yes -Correct Procedure Yes -Procedure Performed Yes -Type of Procedure Debridement -Clinical Debridement Subcutaneous -Tissue Removed Subcutaneous -Post Debridement (cm) - Length 1.5 -Post Debridement (cm) - Width 1.2 -Post Debridement (cm) - Depth 0.1 -Total Square (Post) (cm) 1.80 -Area of Debridement (cm) - Length 1.5 -Area of Debridement (cm) - Width 1.2 -Total Square (Area) (cm) 1.80 -Tunneling No -Undermining/Tunneling No -Circular Undermining No -Wound/Ulcer Outcome Not Healed -Ulcer Cleansing Rinsed/ Irrigated with Saline -Foul Odor after Cleansing No -Bioengineered Tissue No -Bleeding Controlled with Pressure -Treatment Response Procedure Tolerated Well -Offloading No -Debridement - Subq, 1st 20sq cm No #6- R UPPER POST THIGH -Time 15:12 -Correct Patient Yes -Correct Side, Site, Position Yes -Correct Procedure Yes -Procedure Performed Yes -Type of Procedure Debridement -Clinical Debridement Subcutaneous -Tissue Removed Subcutaneous -Post Debridement (cm) - Length 4.5 -Post Debridement (cm) - Width 5 -Post Debridement (cm) - Depth 0.7 -Total Square (Post) (cm) 22.5 -Area of Debridement (cm) - Length 4.5 -Area of Debridement (cm) - Width 5 -Total Square (Area) (cm) 22.5 -Tunneling No -Undermining/Tunneling No -Circular Undermining No -Wound/Ulcer Outcome Not Healed -Ulcer Cleansing Rinsed/ Irrigated with Saline -Foul Odor after Cleansing No -Bioengineered Tissue No -Debridement - Subq, 1st 20sq cm Yes -Debridement, SubQ, ea addt'l 20sq cm 1 or part thereof #5- L UPPER POST THIGH CLUSTER -Time 15:16 -Correct Patient Yes -Correct Side, Site, Position Yes -Correct Procedure Yes -Procedure Performed Yes -Type of Procedure Debridement -Clinical Debridement Muscle / Fascia -Tissue Removed Muscle -Post Debridement (cm) - Length 18.7 -Post Debridement (cm) - Width 14 -Post Debridement (cm) - Depth 2.8 -Total Square (Post) (cm) 261.8 -Area of Debridement (cm) - Length 18.7 -Area of Debridement (cm) - Width 14 -Total Square (Area) (cm) 261.8 -Tunneling No -Undermining/Tunneling No -Circular Undermining No -Wound/Ulcer Outcome Not Healed -Ulcer Cleansing Rinsed/ Irrigated with Saline -Foul Odor after Cleansing No -Bioengineered Tissue No -Bleeding Controlled with Pressure -Treatment Response Procedure Tolerated Well -Offloading No -Pressure Reduction Wheelchair cushion -Debridement - Muscle / Fascia, 1st Yes 20sq cm -Debridement, Muscle/Fascia, ea addt'l 11 20sq cm or part thereof Pain Scale: 0-10 Numeric Is Patient Pain Free? Yes Additional Wound Wound debrided: posterior leg ulcer cluster Laterality: Left Wound Grade/Stage: Stage II Type of Debridement: Excisional debridement Anesthesia Used: 4% Lidocaine Solution Depth: Down to and including healthy tissue and in the subcutaneous layer Percentage of wound debrided: 100 Instrument Used: 7mm curette Tissue Removed: Devitalized tissue and slough Severity: Fat Layer Exposed Amount of bleeding with debridement: Mild Bleeding Controlled with: Compression and gauze Patient tolerated procedure: Patient tolerated procedure well Additional Wound Wound debrided: superior posterior thigh ulcer cluster Laterality: Right Wound Grade/Stage: Stage III Type of Debridement: Excisional debridement Anesthesia Used: 4% Lidocaine Solution Depth: Down to and including healthy tissue and in the subcutaneous layer Percentage of wound debrided: 100 Instrument Used: 5mm curette Tissue Removed: Devitalized tissue and slough Severity: Fat Layer Exposed Bleeding Controlled with: Pressure and Compression and gauze Patient tolerated procedure: Patient tolerated procedure well Additional Wound Wound debrided: Inferior posterior thigh ulcer cluster Laterality: Right Wound Grade/Stage: Stage II Type of Debridement: Excisional debridement Anesthesia Used: 4% Lidocaine Solution Depth: Down to and including healthy tissue and in the subcutaneous layer Percentage of wound debrided: 100 Instrument Used: 5mm curette Tissue Removed: Devitalized tissue and slough Severity: Fat Layer Exposed Amount of bleeding with debridement: Mild Bleeding Controlled with: Compression and gauze Patient tolerated procedure: Patient tolerated procedure well Charges/Coding Visit Charges Office Visits / Consults: 11972 OV L4 Est (25 modifier) Procedures Integumentary [id number]: [id number] Josselyn musc/fascia 20 sq cm/< (Left posterior thigh ulcer) Add On Codes: 09075 Josselyn musc/fascia add-on (x2) Multi Select Codes Integumentary Integumentary CPT Codes: 82261 Josselyn subq tissue 20 sq cm/< (left posterior leg ulcer cluster, right posterior superior thigh and inferior thigh ulcers) Assessment/Plan Assessment/Plan (1) Decubitus ulcer of left thigh, stage 4: CODE(S): L89.224 - Pressure ulcer of left hip, stage 4 (2) Ulcer of left lower extremity with fat layer exposed: CODE(S): L97.922 - Non-pressure chronic ulcer of unspecified part of left lower leg with fat layer exposed (3) Decubitus ulcer of right thigh, stage 3: CODE(S): L89.213 - Pressure ulcer of right hip, stage 3 (4) Chronic ulcer of left thigh with fat layer exposed: CODE(S): L97.122 - Non-pressure chronic ulcer of left thigh with fat layer exposed (5) Cellulitis of left thigh: CODE(S): L03.116 - Cellulitis of left lower limb (6) Spina bifida: CODE(S): Q05.9 - Spina bifida, unspecified QUALIFIERS: Spinal region: thoracolumbar (7) Paraplegia: CODE(S): G82.20 - Paraplegia, unspecified (8) Edema of leg: CODE(S): R60.0 - Localized edema (9) Leg swelling: CODE(S): M79.89 - Other specified soft tissue disorders (10) Hypothyroidism: CODE(S): E03.9 - Hypothyroidism, unspecified (11) Morbid obesity with BMI of 45.0-49.9, adult: CODE(S): E66.01 - Morbid (severe) obesity due to excess calories; Z68.42 - Body mass index [BMI] 45.0-49.9, adult (12) Spina bifida aperta of lumbar spine: CODE(S): Q05.7 - Lumbar spina bifida without hydrocephalus PLAN: Plan Patient was evaluated in the wound center today. A debridement was performed as documented. Wound cultures were obtained of bilateral thigh/legs. Due to her severe redness and warmth of her left thigh, I suspect she has cellulitis. I will put her on Doxycycline 100mg po BID x 14 days. Depending on the results of the cultures, it may be necessary to change or start additional antibiotics. I suggested that she go to the ED for further evaluation of this cellulitis, but she absolutely refuses. Since she currently is not having any fever, chills and has not been treated with antibiotics, I am willing to see how treating this outpatient goes. I have instructed her and her that if she develops a fever or has worsening symptoms, then she will NEED to go to the ED for further evaluation. Wound care - [place] with super absorber to all the ulcers daily after washing them with soap and water. Hopefully this will help contain the drainage and help with her excoriated posterior left thigh. To the left posterior thigh lorrie wound encouraged using a skin barrier such as aquaphor or Calmaseptine cream to help as moisture barrier. Encouraged patient to off load as much as possible. Will apply for new wheel chair and a ROKO cushion that may help with her pressure points. She states that she sleeps in a sleep number bed and that works well to relieve her pressure points while in bed. Encouraged increase protein intake and increase Vitamin C to 1000 mg daily. Follow up one week. Call or come in sooner if develop any concerns.
--- NOTE | 2021-11-29 09:02 | WC ---
Patient called this am reporting that she started her Doxycycline last night and within the hour, she started with a rash and had to start benedryl. Patient wasn't aware of any allergies with Doxycycline but it has been added to her medical records. Patient was advised to stop the medication. Maya Dawson NP was notified of findings and based on her multiple ATb allergies, she will wait until her wound cultures are back to determine the best ATB. In the meantime, patient has been advised to continue washing her wounds with an anti-bacterial soap and keeping them clean and dry. Patient verbalized understanding. Cultures as of this am were still pending.
[2021-12-13 09:15] VITALS: BP 154/80; RESP 16; TEMP 36.6; BMI 48.0
--- NOTE | 2021-12-13 12:41 | PN.PCM_ITS ---
History of Present Illness Date of Service: 12/13/21 Chief Complaint: Ulcers right History of Wound: This is a 30-year-old female who was born with spina bifida. She is paraplegic with no sensation below the waist. She presents today for ulcers on her bilateral thighs that started about three months ago. She and her have been treating them with dry gauze, but the drainage has increased recently so she was referred here. She has a medical history of spina bifida , paraplegia, pre diabetic, HgA1c 6.0, hypothyroidism. She states she is in her wheelchair all day caring for her 5 and 1 year old children. Her wheelchair cushion is from 2018. She states her wheelchair has never fit her properly. She has been treated at the wound center in the past for pressure ulcers. Wound cultures obtained on 11/28/21. Right leg ulcers were positive for Acinetobacter baumannii, Proteus mirabilis, Pseudomonas stutzeri, Staphylococcus aureus, Streptococcus agalactiae. Left leg ulcers were positive for Staphylococcus aureus and Proteus mirabilis. She was treated with Levaquin, Augmentin and a probiotic. Today she denies any fever, chills, nausea or vomiting. Progress of Wound: Right posterior thigh cluster superior and inferior and the left posterior leg ulcers are subcutaneous, smaller in size, and more superficial. The left posterior thigh ulcer cluster is into the muscle is smaller in size, the drainage has decreased. The erythema of the periwound on the left is slightly better using the Aquaphor. Objective Data Objective Data Vital Signs: Vital Signs Temp Pulse Resp BP O2 Del Method 97.8 F 116 H 16 154/80 H Room Air 12/13/21 09:15 11/28/21 14:21 12/13/21 09:15 12/13/21 09:15 12/13/21 09:15 Oxygen Delivery Method Room Air Weight: 280 lb Body Mass Index (BMI) 48.0 Lab / Micro Data Micro: Microbiology 11/28/21 Unknown Wound Abcess - Leg, Right Gram Stain - Final 11/28/21 Unknown Wound Abcess - Leg, Right Wound Culture - Final Acinetobacter baumannii Proteus mirabilis Pseudomonas stutzeri Staphylococcus aureus Streptococcus agalactiae (B) 11/28/21 Unknown Wound Abcess - Leg, Right Anaerobic Culture - Final No anaerobic bacteria isolated. 11/28/21 15:00 Wound Abcess - Leg, Left Gram Stain - Final 11/28/21 15:00 Wound Abcess - Leg, Left Wound Culture - Final Staphylococcus aureus Proteus mirabilis 11/28/21 15:00 Wound Abcess - Leg, Left Anaerobic Culture - Final No anaerobic bacteria isolated. Charges/Coding Procedures Integumentary 111xxx-113xx: 73779 Josselyn musc/fascia 20 sq cm/< (Left thigh cluster) Add On Codes: 35742 Josselyn musc/fascia add-on (x9) Multi Select Codes Integumentary Integumentary CPT Codes: 37290 Josselyn subq tissue 20 sq cm/< (Right thigh ulcers left calf ulcer) Addendum Addendum: 86304 x6 right posterior leg ulcers and left calf ulcers Physical Exam Const alert, oriented x3 and no apparent distress General Appearance: cooperative HEENT normocephalic Head and Scalp: atraumatic Resp normal respiratory effort and normal air movement Effort and Inspection: able to speak in complete sentences Cardio regular rate Extremity Extremity Narrative: Bilateral leg with edema, no sensation Skin Skin Narrative: Left posterior thigh is erythematous, swollen, red, warm to touch Wound Narrative: Right posterior thigh superior cluster ulcer and inferior cluster ulcer and the left posterior leg ulcer cluster are subcutaneous. The left posterior thigh ulcer cluster is into the muscle has decreased depth and drainage. Periwound of the left thigh and calf are less erythematous. Neuro oriented x3 Psych mental status grossly normal, cooperative and affect normal Debridement Note Debridement Note Wound debrided: posterior thigh ulcer cluster Laterality: Left Wound Grade/Stage: Stage IV Type of Debridement: Excisional debridement Anesthesia Used: 4% Lidocaine Solution Depth: Down to and including healthy tissue, in the subcutaneous layer and to muscle Percentage of wound debrided: 100 Instrument Used: 7mm curette Tissue Removed: Devitalized tissue Severity: Fat Layer Exposed Amount of bleeding with debridement: Mild Bleeding Controlled with: Compression and gauze Patient tolerated procedure: Patient tolerated procedure well Post-Debridement Measurements and Additional Note: Post-Debridement Measurements/Treatment WC - Nurse 1 - General Ulcer Assessment Start: 11/28/21 13:55 Freq: Status: Active Protocol: NIR Activity Type Activity Date Activity User E-sign Co-sign Detail Recorded Client Recorded Date Recorded By Document 11/28/21 14:21 [facility] [id number] 11/28/21 14:41 [facility] Document 12/13/21 09:15 [facility] [id number] 12/13/21 09:33 [facility] 11/28/21 12/13/21 14:21 09:15 - Today's Visit Information Type of service Initial Visit Follow-up Visit (Physician/COMPLIANCE DIRECTOR ) Arrival Mode Wheelchair Wheelchair Transfer Assistance Other Manual Transfer Assist (Other) 2 ASSIST slides pt to bed Accompanied by Patient Identification Verified (Name & Yes Yes ) Patient Requires Transmission-Based No No Precautions Height and Weight Height 5 ft 4 in Weight 280 lb Weight in Pounds 280.0 lbs Weight Measurement Method Stated by Patient Body Mass Index (BMI) 48.0 48.0 BMI Classification Obese Obese BSA - Joanne 2.26 Vital Signs Temperature (97.8 F-99.1 F) 97.8 F Temperature Source Temporal Pulse Rate (60-100) 116 H Pulse Location Monitor Respiratory Rate (12-18) 16 16 Respiratory rate source Observation Observation Oxygen Delivery Method Room Air Room Air Blood Pressure (90/60-120/80) 144/92 H 154/80 H Blood Pressure Mean (mm Hg) 109 104 Source Monitor Monitor Position Sitting Sitting Blood Pressure Location Right Forearm Right Arm History Since Last Visit- (Skip if this is Patient's initial visit) Have you changed medications since your No last visit? Any new allergies or adverse reactions No Had a fall/change in ADL's that may No increase risk of falls Signs or symptoms of abuse and/or No neglect since last visit Have you been in the hospital since your No last visit? Has dressing in place as prescribed Yes Has compression in place as prescribed N/A Has offloadiing in place as prescribed N/A Experienced any changes in pain level or No management Left Footwear Slipper Right Footwear Slipper Pain Scale: 0-10 Numeric Is Patient Pain Free? Yes Yes - Nurse 1 - General Ulcer Measurement Start: 11/28/21 13:55 Freq: Status: Active Protocol: Activity Type Activity Date Activity User E-sign Co-sign Detail Recorded Client Recorded Date Recorded By Document 11/28/21 14:21 [facility] [id number] 11/28/21 14:41 [facility] Document 12/13/21 09:15 [facility] [id number] 12/13/21 09:33 [facility] 11/28/21 12/13/21 14:21 09:15 Wound Center Nurse 1 8-left posterior calf -Combined with other wound No -Current Size (cm) - Length 2.7 -Current Size (cm) - Width 1.5 -Current Size (cm) - Depth 0.1 -Total Square Cm 4.05 -Date of Last Picture (Recall this 12/13/21 field) -Photo Taken Yes -Epithelialization Small 1-33% -Tunneling No -Undermining/Tunneling No -Circular Undermining No -Exudate Amt Medium -Exudate Type Serosanguineous -Wound Margin Distinct, Outline Attached -Granulation Amt Medium (34-66%) -Granulation Quality Red -Slough/Fibrin Yes -Necrosis Amt Medium (34-66%) -Necrotic Tissue Type Adherent Slough -Texture (Lorrie-wound Skin Appearance) Assessed, Excoriation, Scarring,Rash -Moisture (Lorrie-wound Skin Appearance) Assessed,Dry/ Scaly -Color (Lorrie-wound Skin Appearance) Assessed, Erythema -Temperature (Lorrie-wound Skin No Abnormality Appearance) (Pt Warm) -Tenderness on Palpation (Lorrie-wound No Skin Appearance) -Ulcer Cleansing Soap and Water -Foul Odor after Cleansing No #7- R inferior thigh -Combined with other wound No No -Current Size (cm) - Length 1.5 0.7 -Current Size (cm) - Width 1 0.5 -Current Size (cm) - Depth 0.1 0.1 -Total Square Cm 1.5 0.35 -Date of Last Picture (Recall this 11/28/21 12/13/21 field) -Photo Taken Yes Yes -Epithelialization None Present Small 1-33% -Tunneling No No -Undermining/Tunneling No No -Circular Undermining No No -Exudate Amt Medium Medium -Exudate Type Serosanguineous Serosanguineous -Wound Margin Distinct, Distinct, Outline Outline Attached Attached -Granulation Amt Small (1-33%) Large (67-100%) -Granulation Quality [place] Red -Slough/Fibrin Yes No -Necrosis Amt Large (67-100%) None Present (0 %) -Necrotic Tissue Type Adherent Slough -Texture (Lorrie-wound Skin Appearance) Assessed, Assessed, Scarring Scarring -Moisture (Lorrie-wound Skin Appearance) Assessed,Dry/ Assessed,Dry/ Scaly Scaly -Color (Lorrie-wound Skin Appearance) Assessed, Assessed Erythema -Temperature (Lorrie-wound Skin No Abnormality No Abnormality Appearance) (Pt Warm) (Pt Warm) -Tenderness on Palpation (Lorrie-wound No No Skin Appearance) -Ulcer Cleansing Soap and Water Soap and Water -Foul Odor after Cleansing No No #6- R UPPER POST THIGH -Combined with other wound No No -Current Size (cm) - Length 5.5 4 -Current Size (cm) - Width 3 2.7 -Current Size (cm) - Depth 0.1 0.2 -Total Square Cm 16.5 10.8 -Date of Last Picture (Recall this 11/28/21 12/13/21 field) -Photo Taken Yes Yes -Epithelialization None Present Small 1-33% -Tunneling No No -Undermining/Tunneling No No -Circular Undermining No No -Exudate Amt Large Small -Exudate Type Serosanguineous Serosanguineous -Wound Margin Distinct, Distinct, Outline Outline Attached Attached -Granulation Amt Large (67-100%) Large (67-100%) -Granulation Quality Red Red -Slough/Fibrin Yes No -Necrosis Amt Small (1-33%) None Present (0 %) -Necrotic Tissue Type Adherent Slough -Texture (Lorrie-wound Skin Appearance) Assessed, Assessed, Scarring,Rash Scarring -Moisture (Lorrie-wound Skin Appearance) Assessed Assessed,Dry/ Scaly -Color (Lorrie-wound Skin Appearance) Assessed, Assessed Erythema -Temperature (Lorrie-wound Skin No Abnormality No Abnormality Appearance) (Pt Warm) (Pt Warm) -Tenderness on Palpation (Lorrie-wound No No Skin Appearance) -Ulcer Cleansing Soap and Water Soap and Water -Foul Odor after Cleansing No No #5- L UPPER POST THIGH CLUSTER -Combined with other wound No No -Current Size (cm) - Length 13.5 16 -Current Size (cm) - Width 22.5 15 -Current Size (cm) - Depth 0.4 0.2 -Total Square Cm 303.75 240 -Date of Last Picture (Recall this 11/28/21 12/13/21 field) -Photo Taken Yes Yes -Epithelialization None Present Small 1-33% -Tunneling No No -Undermining/Tunneling No No -Circular Undermining No No -Exudate Amt Large Large -Exudate Type Serosanguineous Serosanguineous -Wound Margin Distinct, Distinct, Outline Outline Attached Attached -Granulation Amt Large (67-100%) Large (67-100%) -Granulation Quality Red Red -Slough/Fibrin Yes No -Necrosis Amt Small (1-33%) None Present (0 %) -Necrotic Tissue Type Adherent Slough -Texture (Lorrie-wound Skin Appearance) Assessed, Assessed, Excoriation, Excoriation, Scarring Scarring,Rash -Moisture (Lorrie-wound Skin Appearance) Assessed,Dry/ Assessed,Dry/ Scaly Scaly -Color (Lorrie-wound Skin Appearance) Assessed, Assessed, Erythema Erythema -Temperature (Lorrie-wound Skin No Abnormality No Abnormality Appearance) (Pt Warm) (Pt Warm) -Tenderness on Palpation (Lorrie-wound No No Skin Appearance) -Ulcer Cleansing Soap and Water Soap and Water -Foul Odor after Cleansing No No WC - Nurse 2 - General Ulcer CM Notes Start: 11/28/21 13:55 Freq: Status: Active Protocol: Activity Type Activity Date Activity User E-sign Co-sign Detail Recorded Client Recorded Date Recorded By Document 11/28/21 15:01 [id number] 11/28/21 15:21 Document 12/13/21 09:44 Desktop 12/13/21 09:56 11/28/21 12/13/21 15:01 09:44 Wound Center Nurse 2 8-left posterior calf -Time 15:18 09:45 -Correct Patient Yes Yes -Correct Side, Site, Position Yes Yes -Correct Procedure Yes Yes -Procedure Performed Yes Yes -Type of Procedure Debridement Debridement -Clinical Debridement Subcutaneous Subcutaneous -Tissue Removed Subcutaneous Subcutaneous -Post Debridement (cm) - Length 3.0 15 -Post Debridement (cm) - Width 4.2 8 -Post Debridement (cm) - Depth 0.1 0.1 -Total Square (Post) (cm) 12.60 120 -Area of Debridement (cm) - Length 3.0 15 -Area of Debridement (cm) - Width 4.2 8 -Total Square (Area) (cm) 12.60 120 -Tunneling No No -Undermining/Tunneling No No -Circular Undermining No No -Wound/Ulcer Outcome Not Healed Not Healed -Ulcer Cleansing Rinsed/ Rinsed/ Irrigated with Irrigated with Saline Saline -Foul Odor after Cleansing No No -Bioengineered Tissue No No -Bleeding Controlled with Pressure Pressure -Treatment Response Procedure Procedure Tolerated Well Tolerated Well -Offloading No No -Pressure Reduction Wheelchair Wheelchair cushion cushion -Debridement - Subq, 1st 20sq cm No No #7- R inferior thigh -Time 15:11 09:45 -Correct Patient Yes Yes -Correct Side, Site, Position Yes Yes -Correct Procedure Yes Yes -Procedure Performed Yes Yes -Type of Procedure Debridement Debridement -Clinical Debridement Subcutaneous Subcutaneous -Tissue Removed Subcutaneous Subcutaneous -Post Debridement (cm) - Length 1.5 0.6 -Post Debridement (cm) - Width 1.2 0.7 -Post Debridement (cm) - Depth 0.1 0.1 -Total Square (Post) (cm) 1.80 0.42 -Area of Debridement (cm) - Length 1.5 0.6 -Area of Debridement (cm) - Width 1.2 0.7 -Total Square (Area) (cm) 1.80 0.42 -Tunneling No No -Undermining/Tunneling No No -Circular Undermining No No -Wound/Ulcer Outcome Not Healed Not Healed -Ulcer Cleansing Rinsed/ Rinsed/ Irrigated with Irrigated with Saline Saline -Foul Odor after Cleansing No No -Bioengineered Tissue No No -Bleeding Controlled with Pressure Pressure -Treatment Response Procedure Procedure Tolerated Well Tolerated Well -Offloading No No -Pressure Reduction Wheelchair cushion -Debridement - Subq, 1st 20sq cm No No #6- R UPPER POST THIGH -Time 15:12 09:46 -Correct Patient Yes Yes -Correct Side, Site, Position Yes Yes -Correct Procedure Yes Yes -Procedure Performed Yes Yes -Type of Procedure Debridement Debridement -Clinical Debridement Subcutaneous Subcutaneous -Tissue Removed Subcutaneous Subcutaneous -Post Debridement (cm) - Length 4.5 5.3 -Post Debridement (cm) - Width 5 3 -Post Debridement (cm) - Depth 0.7 0.5 -Total Square (Post) (cm) 22.5 15.9 -Area of Debridement (cm) - Length 4.5 5.3 -Area of Debridement (cm) - Width 5 3 -Total Square (Area) (cm) 22.5 15.9 -Tunneling No No -Undermining/Tunneling No No -Circular Undermining No No -Wound/Ulcer Outcome Not Healed Not Healed -Ulcer Cleansing Rinsed/ Rinsed/ Irrigated with Irrigated with Saline Saline -Foul Odor after Cleansing No No -Bioengineered Tissue No No -Bleeding Controlled with Pressure -Treatment Response Procedure Tolerated Well -Offloading No -Pressure Reduction Wheelchair cushion -Debridement - Subq, 1st 20sq cm Yes Yes -Debridement, SubQ, ea addt'l 20sq cm 1 6 or part thereof #5- L UPPER POST THIGH CLUSTER -Time 15:16 09:46 -Correct Patient Yes Yes -Correct Side, Site, Position Yes Yes -Correct Procedure Yes Yes -Procedure Performed Yes Yes -Type of Procedure Debridement Debridement -Clinical Debridement Muscle / Fascia Muscle / Fascia -Tissue Removed Muscle Muscle,Fascia -Post Debridement (cm) - Length 18.7 14.3 -Post Debridement (cm) - Width 14 13.7 -Post Debridement (cm) - Depth 2.8 2.0 -Total Square (Post) (cm) 261.8 195.91 -Area of Debridement (cm) - Length 18.7 14.3 -Area of Debridement (cm) - Width 14 13.7 -Total Square (Area) (cm) 261.8 195.91 -Tunneling No No -Undermining/Tunneling No No -Circular Undermining No No -Wound/Ulcer Outcome Not Healed Not Healed -Ulcer Cleansing Rinsed/ Rinsed/ Irrigated with Irrigated with Saline Saline -Foul Odor after Cleansing No No -Bioengineered Tissue No No -Bleeding Controlled with Pressure Pressure -Treatment Response Procedure Procedure Tolerated Well Tolerated Well -Offloading No No -Pressure Reduction Wheelchair Wheelchair cushion cushion -Debridement - Muscle / Fascia, 1st Yes Yes 20sq cm -Debridement, Muscle/Fascia, ea addt'l 11 9 20sq cm or part thereof Pain Scale: 0-10 Numeric Is Patient Pain Free? Yes Yes WC - Nurse 3 - General Ulcer D/C NN Start: 11/28/21 13:55 Freq: Status: Active Protocol: Activity Type Activity Date Activity User E-sign Co-sign Detail Recorded Client Recorded Date Recorded By Document 11/28/21 15:46 [facility] [id number] 11/28/21 15:48 BM Document 12/13/21 10:05 DL [id number] 12/13/21 10:11 DL 11/28/21 12/13/21 15:46 10:05 Wound Care Nurse 3 8-left posterior calf -Ulcer Cleansing Rinsed/ Rinsed/ Irrigated with Irrigated with Saline Saline -Foul Odor after Cleansing No No -Primary Dressing Applied Optilok 6.5x10, Optilok 8x12, Optilok 8x12, Silvercel Silvercel -Primary Dressing Covered/Secured with Secured with Dry Gauze & Tape Roll Gauze, Secured with Tape -Optilok 6.5x10 1 -Optilok 8x12 2 1 -Silvercel 2 1 #7- R inferior thigh -Ulcer Cleansing Rinsed/ Rinsed/ Irrigated with Irrigated with Saline Saline -Foul Odor after Cleansing No No -Primary Dressing Applied Optilok 6.5x10, Optilok 6.5x10, Optilok 8x12, Silvercel Silvercel -Primary Dressing Covered/Secured with Secured with Dry Gauze & Tape Roll Gauze, Secured with Tape -Optilok 6.5x10 0 1 -Optilok 8x12 0 -Silvercel 0 1 #6- R UPPER POST THIGH -Ulcer Cleansing Rinsed/ Rinsed/ Irrigated with Irrigated with Saline Saline -Foul Odor after Cleansing No No -Primary Dressing Applied Optilok 6.5x10, Optilok 8x12, Silvercel -Other Dressing silvercell -Primary Dressing Covered/Secured with Dry Gauze & Roll Gauze, Secured with Tape -Optilok 6.5x10 0 -Optilok 8x12 0 -Silvercel 0 #5- L UPPER POST THIGH CLUSTER -Ulcer Cleansing Rinsed/ Rinsed/ Irrigated with Irrigated with Saline Saline -Foul Odor after Cleansing No No -Primary Dressing Applied Optilok 6.5x10, Optilok 8x12, Silvercel -Other Dressing silvercell -Primary Dressing Covered/Secured with Dry Gauze & Roll Gauze, Secured with Tape -Optilok 6.5x10 0 -Optilok 8x12 0 -Silvercel 0 Treatment Response Procedure Procedure Tolerated Well Tolerated Well Pain Scale: 0-10 Numeric Is Patient Pain Free? Yes Yes WC - Visit Discharge Discharge Condition Stable Stable Ambulatory Status Wheelchair Wheelchair Transportation Private Auto Private Auto Accompanied by Additional Wound Wound debrided: posterior leg ulcer cluster Laterality: Left Wound Grade/Stage: Stage II Type of Debridement: Excisional debridement Anesthesia Used: 4% Lidocaine Solution Depth: Down to and including healthy tissue and in the subcutaneous layer Percentage of wound debrided: 100 Instrument Used: 7mm curette Tissue Removed: Devitalized tissue and slough Severity: Fat Layer Exposed Amount of bleeding with debridement: Mild Bleeding Controlled with: Compression and gauze Patient tolerated procedure: Patient tolerated procedure well Additional Wound Wound debrided: superior posterior thigh ulcer cluster Laterality: Right Wound Grade/Stage: Stage III Type of Debridement: Excisional debridement Anesthesia Used: 4% Lidocaine Solution Depth: Down to and including healthy tissue and in the subcutaneous layer Percentage of wound debrided: 100 Instrument Used: 5mm curette Tissue Removed: Devitalized tissue and slough Severity: Fat Layer Exposed Bleeding Controlled with: Pressure and Compression and gauze Patient tolerated procedure: Patient tolerated procedure well Additional Wound Wound debrided: Inferior posterior thigh ulcer cluster Laterality: Right Wound Grade/Stage: Stage II Type of Debridement: Excisional debridement Anesthesia Used: 4% Lidocaine Solution Depth: Down to and including healthy tissue and in the subcutaneous layer Percentage of wound debrided: 100 Instrument Used: 5mm curette Tissue Removed: Devitalized tissue and slough Severity: Fat Layer Exposed Amount of bleeding with debridement: Mild Bleeding Controlled with: Compression and gauze Patient tolerated procedure: Patient tolerated procedure well Assessment/Plan Assessment/Plan (1) Decubitus ulcer of left thigh, stage 4: CODE(S): L89.224 - Pressure ulcer of left hip, stage 4 (2) Ulcer of left lower extremity with fat layer exposed: CODE(S): L97.922 - Non-pressure chronic ulcer of unspecified part of left lower leg with fat layer exposed (3) Decubitus ulcer of right thigh, stage 3: CODE(S): L89.213 - Pressure ulcer of right hip, stage 3 (4) Chronic ulcer of left thigh with fat layer exposed: CODE(S): L97.122 - Non-pressure chronic ulcer of left thigh with fat layer exposed (5) Cellulitis of left thigh: CODE(S): L03.116 - Cellulitis of left lower limb (6) Spina bifida: CODE(S): Q05.9 - Spina bifida, unspecified QUALIFIERS: Spinal region: thoracolumbar (7) Paraplegia: CODE(S): G82.20 - Paraplegia, unspecified (8) Edema of leg: CODE(S): R60.0 - Localized edema (9) Leg swelling: CODE(S): M79.89 - Other specified soft tissue disorders (10) Hypothyroidism: CODE(S): E03.9 - Hypothyroidism, unspecified (11) Morbid obesity with BMI of 45.0-49.9, adult: CODE(S): E66.01 - Morbid (severe) obesity due to excess calories; Z68.42 - Body mass index [BMI] 45.0-49.9, adult (12) Spina bifida aperta of lumbar spine: CODE(S): Q05.7 - Lumbar spina bifida without hydrocephalus PLAN: Plan Patient was evaluated in the wound center today. A debridement was performed as documented. Wound cultures were obtained of bilateral thigh/legs on 11/28/2021. She was started on doxycycline at her last visit for culture results back due to cellulitis that had. The next day she developed a reaction to the doxycycline so it was stopped. Wound for culture results are back (see HPI) she was started on Levaquin and Augmentin along with a probiotic which she is tolerating well. Wound care - Silvercel with super absorber to all the ulcers daily after washing them with soap and water to the left thigh cluster ulcer and the left calf cluster ulcer. Collagen hydrogel with Adaptic to the right superior and inferior posterior thigh ulcers daily. Continue the Aquaphor to the left posterior thigh lorrie wound to improve the erythema. Encouraged patient to off load as much as possible. Will apply for new wheel chair and a ROKO cushion that may help with her pressure points. Company has been in contact with her to help replace parts of her wheelchair where she is having issues with her ulcers, including the cushion. She states that she sleeps in a sleep number bed and that works well to relieve her pressure points while in bed. Encouraged increase protein intake and increase Vitamin C to 1000 mg daily. Follow up one week. Call or come in sooner if develop any concerns.
== END 2021-12-15 23:59 | disposition home or self-care (01) ==
LOC: WC 09:00
PROVIDERS: PCP Student in an Organized Health Care Education/Training Program; Visit Provider Nurse Practitioner Family
DX: L03.116 Cellulitis of left lower limb (principal); L89.894 Pressure ulcer of other site, stage 4; L89.893 Pressure ulcer of other site, stage 3; G82.20 Paraplegia, unspecified; L89.892 Pressure ulcer of other site, stage 2; L97.222 Non-pressure chronic ulcer of left calf with fat layer exposed; L97.212 Non-pressure chronic ulcer of right calf with fat layer exposed; Q05.7 Lumbar spina bifida without hydrocephalus; E66.01 Morbid (severe) obesity due to excess calories; Z68.42 Body mass index [BMI] 45.0-49.9, adult; R60.0 Localized edema; E03.9 Hypothyroidism, unspecified; Z79.890 Hormone replacement therapy
CPT/HCPCS: 11042; 11043; 11045; 11046; 87070; 87075; 87077; 87186; 87205; 99214; G0463

== ENCOUNTER 2022-01-10 09:00 | Outpatient (RCR) | payer BC, SELFPAY ==
[2021-12-16 00:26] VITALS: BP 154/80; PULSE 116; RESP 16; TEMP 36.6; BMI 48.0
[2021-12-20 09:33] VITALS: BP 129/69; PULSE 113; RESP 18; TEMP 36.6; BMI 48.0
--- NOTE | 2021-12-20 10:09 | PN.PCM_ITS ---
History of Present Illness Date of Service: 12/20/21 Chief Complaint: Ulcers right and left thighs and left calf History of Wound: his is a 30-year-old female who was born with spina bifida. She is paraplegic with no sensation below the waist. She presents today for ulcers on her bilateral thighs that started about three months ago. She and her have been treating them with dry gauze, but the drainage has increased recently so she was referred here. She has a medical history of spina bifida , paraplegia, pre diabetic, HgA1c 6.0, hypothyroidism. She states she is in her wheelchair all day caring for her 5 and 1 year old children. Her wheelchair cushion is from 2018. She states her wheelchair has never fit her properly. She has been treated at the wound center in the past for pressure ulcers. Wound cultures obtained on 11/28/21. Right leg ulcers were positive for Acinetobacter baumannii, Proteus mirabilis, Pseudomonas stutzeri, Staphylococcus aureus, Streptococcus agalactiae. Left leg ulcers were positive for Staphylococcus aureus and Proteus mirabilis. She was treated with Levaquin, Augmentin and a probiotic. Today she denies any fever, chills, nausea or vomiting. She states she has a good appetite. Progress of Wound: Right posterior thigh cluster superior ulcers and right thigh ulcer are slightly smaller, wound bed is beefy pink. The left posterior proximal thigh cluster ulcers are stable, but not showing much improvement. The left posterior calf ulcer cluster is smaller in size. She is have a significant amount of drainage from her ulcers. Her lorrie wound on her left thigh is very excoriated and erythematous. Objective Data Objective Data Vital Signs: Vital Signs Temp Pulse Resp BP 98 F 113 H 18 129/69 H 12/20/21 09:33 12/20/21 09:33 12/20/21 09:33 12/20/21 09:33 Weight: 280 lb Body Mass Index (BMI) 48.0 Charges/Coding Procedures Integumentary 111xxx-113xx: [id number] Josselyn musc/fascia 20 sq cm/< (left posterior proximal thigh ulcer cluster) Add On Codes: 83223 Josselyn subq tissue add-on (x 12) Multi Select Codes Integumentary Integumentary CPT Codes: 30156 Josselyn subq tissue 20 sq cm/< (left calf ulcer, right superior and inferior thigh ulcers) Physical Exam Const alert, oriented x3 and no apparent distress General Appearance: cooperative HEENT normocephalic Head and Scalp: atraumatic Resp normal respiratory effort and normal air movement Effort and Inspection: able to speak in complete sentences Cardio regular rate Extremity Extremity Narrative: Bilateral leg with edema, no sensation Skin Skin Narrative: Left posterior thigh is excoriated and erythematous. Wound Narrative: Right posterior thigh superior cluster ulcer and inferior cluster ulcer and the left posterior leg ulcer cluster are subcutaneous. The left posterior thigh ulcer cluster is into the muscle and pink in the base. Periwound of the left thigh and calf are less erythematous. Neuro oriented x3 Psych mental status grossly normal, cooperative and affect normal Debridement Note Debridement Note Wound debrided: posterior thigh ulcer cluster Laterality: Left Wound Grade/Stage: Stage IV Type of Debridement: Excisional debridement Anesthesia Used: 4% Lidocaine Solution Depth: Down to and including healthy tissue, in the subcutaneous layer and to muscle Percentage of wound debrided: 100 Instrument Used: 7mm curette Tissue Removed: Devitalized tissue Severity: Fat Layer Exposed Amount of bleeding with debridement: Mild Bleeding Controlled with: Compression and gauze Patient tolerated procedure: Patient tolerated procedure well Post-Debridement Measurements and Additional Note: Post-Debridement Measurements/Treatment - Nurse 1 - General Ulcer Assessment Start: 12/20/21 09:33 Freq: Status: Active Protocol: NIR Activity Type Activity Date Activity User E-sign Co-sign Detail Recorded Client Recorded Date Recorded By Document 12/20/21 09:33 Desktop 12/20/21 09:38 RB 12/20/21 09:33 - Today's Visit Information Type of service Follow-up Visit (Physician/MANAGER LIBRARY ) Arrival Mode Wheelchair Transfer Assistance Manual Patient Identification Verified (Name & Yes ) Patient Requires Transmission-Based No Precautions Height and Weight Body Mass Index (BMI) 48.0 BMI Classification Obese Vital Signs Temperature (97.8 F-99.1 F) 98 F Temperature Source Temporal Pulse Rate (60-100) 113 H Pulse Location Monitor Respiratory Rate (12-18) 18 Respiratory rate source Observation Blood Pressure (90/60-120/80) 129/69 H Blood Pressure Mean (mm Hg) 89 Source Monitor Position Sitting Blood Pressure Location Right Forearm History Since Last Visit- (Skip if this is Patient's initial visit) Have you changed medications since your No last visit? Any new allergies or adverse reactions No Had a fall/change in ADL's that may No increase risk of falls Signs or symptoms of abuse and/or No neglect since last visit Have you been in the hospital since your No last visit? Has dressing in place as prescribed Yes Has compression in place as prescribed No Has offloadiing in place as prescribed No Experienced any changes in pain level or No management Pain Scale: 0-10 Numeric Is Patient Pain Free? Yes WC - Nurse 1 - General Ulcer Measurement Start: 12/20/21 09:33 Freq: Status: Active Protocol: Activity Type Activity Date Activity User E-sign Co-sign Detail Recorded Client Recorded Date Recorded By Document 12/20/21 09:33 RB Desktop 12/20/21 09:38 RB 12/20/21 09:33 Wound Center Nurse 1 8-left posterior calf -Combined with other wound No -Current Size (cm) - Length 3.2 -Current Size (cm) - Width 1.4 -Current Size (cm) - Depth 0.1 -Total Square Cm 4.48 -Tunneling No -Undermining/Tunneling No -Circular Undermining No -Exudate Amt Large -Exudate Type Serosanguineous -Wound Margin Distinct, Outline Attached -Granulation Amt Medium (34-66%) -Granulation Quality [place] -Slough/Fibrin Yes -Necrosis Amt Medium (34-66%) -Necrotic Tissue Type Adherent Slough -Structure Exposed N/A -Texture (Lorrie-wound Skin Appearance) Assessed, Excoriation -Moisture (Lorrie-wound Skin Appearance) Assessed -Color (Lorrie-wound Skin Appearance) Assessed -Temperature (Lorrie-wound Skin No Abnormality Appearance) (Pt Warm) -Tenderness on Palpation (Lorrie-wound No Skin Appearance) -Ulcer Cleansing Wound Cleanser -Foul Odor after Cleansing No #7- R inferior thigh -Combined with other wound No -Current Size (cm) - Length 0.7 -Current Size (cm) - Width 0.5 -Current Size (cm) - Depth 0.2 -Total Square Cm 0.35 -Tunneling No -Undermining/Tunneling No -Circular Undermining No -Exudate Amt Large -Exudate Type Serosanguineous -Wound Margin Distinct, Outline Attached -Granulation Amt Medium (34-66%) -Granulation Quality [place] -Slough/Fibrin Yes -Necrosis Amt Medium (34-66%) -Necrotic Tissue Type Adherent Slough -Structure Exposed N/A -Texture (Lorrie-wound Skin Appearance) Assessed, Excoriation -Moisture (Lorrie-wound Skin Appearance) Assessed -Color (Lorrie-wound Skin Appearance) Assessed -Temperature (Lorrie-wound Skin No Abnormality Appearance) (Pt Warm) -Tenderness on Palpation (Lorrie-wound No Skin Appearance) -Ulcer Cleansing Wound Cleanser -Foul Odor after Cleansing No #6- R UPPER POST THIGH -Combined with other wound No -Current Size (cm) - Length 3.5 -Current Size (cm) - Width 2.5 -Current Size (cm) - Depth 0.2 -Total Square Cm 8.75 -Tunneling No -Circular Undermining No -Exudate Amt Large -Exudate Type Serosanguineous -Wound Margin Distinct, Outline Attached -Granulation Amt Medium (34-66%) -Granulation Quality [place] -Slough/Fibrin Yes -Necrosis Amt Medium (34-66%) -Necrotic Tissue Type Adherent Slough -Structure Exposed N/A -Texture (Lorrie-wound Skin Appearance) Excoriation -Moisture (Lorrie-wound Skin Appearance) Assessed -Color (Lorrie-wound Skin Appearance) Assessed -Temperature (Lorrie-wound Skin No Abnormality Appearance) (Pt Warm) -Tenderness on Palpation (Lorrie-wound No Skin Appearance) -Ulcer Cleansing Wound Cleanser -Foul Odor after Cleansing No #5- L UPPER POST THIGH CLUSTER -Combined with other wound No -Current Size (cm) - Length 21.5 -Current Size (cm) - Width 14 -Current Size (cm) - Depth 0.1 -Total Square Cm 301.0 -Tunneling No -Undermining/Tunneling No -Circular Undermining No -Exudate Amt Large -Exudate Type Serosanguineous -Wound Margin Distinct, Outline Attached -Granulation Amt Medium (34-66%) -Granulation Quality [place] -Slough/Fibrin Yes -Necrosis Amt Medium (34-66%) -Necrotic Tissue Type Adherent Slough -Structure Exposed N/A -Texture (Lorrie-wound Skin Appearance) Assessed, Excoriation -Moisture (Lorrie-wound Skin Appearance) Assessed -Color (Lorrie-wound Skin Appearance) Assessed -Temperature (Lorrie-wound Skin No Abnormality Appearance) (Pt Warm) -Tenderness on Palpation (Lorrie-wound No Skin Appearance) -Ulcer Cleansing Wound Cleanser -Foul Odor after Cleansing Yes WC - Nurse 2 - General Ulcer CM Notes Start: 12/20/21 09:33 Freq: Status: Active Protocol: Activity Type Activity Date Activity User E-sign Co-sign Detail Recorded Client Recorded Date Recorded By Document 12/20/21 09:52 JOHAN [id number] 12/20/21 10:05 JOHAN 12/20/21 09:52 Wound Center Nurse 2 8-left posterior calf -Time 09:53 -Correct Patient Yes -Correct Side, Site, Position Yes -Correct Procedure Yes -Procedure Performed Yes -Type of Procedure Debridement -Clinical Debridement Subcutaneous -Tissue Removed Subcutaneous -Post Debridement (cm) - Length 9 -Post Debridement (cm) - Width 7 -Post Debridement (cm) - Depth 0.2 -Total Square (Post) (cm) 63 -Area of Debridement (cm) - Length 9 -Area of Debridement (cm) - Width 7 -Total Square (Area) (cm) 63 -Tunneling No -Undermining/Tunneling No -Circular Undermining No -Wound/Ulcer Outcome Not Healed -Ulcer Cleansing Rinsed/ Irrigated with Saline -Foul Odor after Cleansing No -Bioengineered Tissue No -Bleeding Controlled with Pressure -Treatment Response Procedure Tolerated Well -Offloading No -Debridement - Subq, 1st 20sq cm No #7- R inferior thigh -Time 09:53 -Correct Patient Yes -Correct Side, Site, Position Yes -Correct Procedure Yes -Procedure Performed Yes -Type of Procedure Debridement -Clinical Debridement Subcutaneous -Tissue Removed Subcutaneous -Post Debridement (cm) - Length 0.4 -Post Debridement (cm) - Width 0.5 -Post Debridement (cm) - Depth 0.1 -Total Square (Post) (cm) 0.20 -Area of Debridement (cm) - Length 0.4 -Area of Debridement (cm) - Width 0.5 -Total Square (Area) (cm) 0.20 -Tunneling No -Undermining/Tunneling No -Circular Undermining No -Wound/Ulcer Outcome Not Healed -Ulcer Cleansing Rinsed/ Irrigated with Saline -Foul Odor after Cleansing No -Bioengineered Tissue No -Treatment Response Procedure Tolerated Well -Offloading No -Debridement - Subq, 1st 20sq cm No #6- R UPPER POST THIGH -Time 09:54 -Correct Patient Yes -Correct Side, Site, Position Yes -Correct Procedure Yes -Procedure Performed Yes -Type of Procedure Debridement -Clinical Debridement Subcutaneous -Tissue Removed Subcutaneous -Post Debridement (cm) - Length 4.9 -Post Debridement (cm) - Width 2.2 -Post Debridement (cm) - Depth 0.6 -Total Square (Post) (cm) 10.78 -Area of Debridement (cm) - Length 4.9 -Area of Debridement (cm) - Width 2.2 -Total Square (Area) (cm) 10.78 -Tunneling No -Undermining/Tunneling No -Circular Undermining No -Wound/Ulcer Outcome Not Healed -Ulcer Cleansing Rinsed/ Irrigated with Saline -Foul Odor after Cleansing No -Bioengineered Tissue No -Bleeding Controlled with Pressure -Treatment Response Procedure Tolerated Well -Offloading No -Debridement - Subq, 1st 20sq cm No #5- L UPPER POST THIGH CLUSTER -Time 09:54 -Correct Patient Yes -Correct Side, Site, Position Yes -Correct Procedure Yes -Procedure Performed Yes -Type of Procedure Debridement -Clinical Debridement Subcutaneous -Tissue Removed Subcutaneous -Post Debridement (cm) - Length 14.5 -Post Debridement (cm) - Width 14.8 -Post Debridement (cm) - Depth 1.9 -Total Square (Post) (cm) 214.60 -Area of Debridement (cm) - Length 14.5 -Area of Debridement (cm) - Width 14.8 -Total Square (Area) (cm) 214.60 -Bioengineered Tissue No -Debridement - Subq, 1st 20sq cm Yes -Debridement, SubQ, ea addt'l 20sq cm 14 or part thereof Pain Scale: 0-10 Numeric Is Patient Pain Free? Yes Additional Wound Wound debrided: posterior leg (calf) ulcer cluster Laterality: Left Wound Grade/Stage: Stage II Type of Debridement: Excisional debridement Anesthesia Used: 4% Lidocaine Solution Depth: Down to and including healthy tissue and in the subcutaneous layer Percentage of wound debrided: 100 Instrument Used: 7mm curette Tissue Removed: Devitalized tissue and slough Severity: Fat Layer Exposed Amount of bleeding with debridement: Mild Bleeding Controlled with: Compression and gauze Patient tolerated procedure: Patient tolerated procedure well Additional Wound Wound debrided: superior posterior thigh ulcer cluster Laterality: Right Wound Grade/Stage: Stage III Type of Debridement: Excisional debridement Anesthesia Used: 4% Lidocaine Solution Depth: Down to and including healthy tissue and in the subcutaneous layer Percentage of wound debrided: 100 Instrument Used: 5mm curette Tissue Removed: Devitalized tissue and slough Severity: Fat Layer Exposed Bleeding Controlled with: Pressure and Compression and gauze Patient tolerated procedure: Patient tolerated procedure well Additional Wound Wound debrided: Inferior posterior thigh ulcer cluster Laterality: Right Wound Grade/Stage: Stage II Type of Debridement: Excisional debridement Anesthesia Used: 4% Lidocaine Solution Depth: Down to and including healthy tissue and in the subcutaneous layer Percentage of wound debrided: 100 Instrument Used: 5mm curette Tissue Removed: Devitalized tissue and slough Severity: Fat Layer Exposed Amount of bleeding with debridement: Mild Bleeding Controlled with: Compression and gauze Patient tolerated procedure: Patient tolerated procedure well Assessment/Plan Assessment/Plan (1) Decubitus ulcer of left thigh, stage 4: CODE(S): L89.224 - Pressure ulcer of left hip, stage 4 (2) Ulcer of left lower extremity with fat layer exposed: CODE(S): L97.922 - Non-pressure chronic ulcer of unspecified part of left lower leg with fat layer exposed (3) Decubitus ulcer of right thigh, stage 3: CODE(S): L89.213 - Pressure ulcer of right hip, stage 3 (4) Chronic ulcer of left thigh with fat layer exposed: CODE(S): L97.122 - Non-pressure chronic ulcer of left thigh with fat layer exposed (5) Cellulitis of left thigh: CODE(S): L03.116 - Cellulitis of left lower limb (6) Spina bifida: CODE(S): Q05.9 - Spina bifida, unspecified QUALIFIERS: Spinal region: thoracolumbar (7) Paraplegia: CODE(S): G82.20 - Paraplegia, unspecified (8) Edema of leg: CODE(S): R60.0 - Localized edema (9) Leg swelling: CODE(S): M79.89 - Other specified soft tissue disorders (10) Hypothyroidism: CODE(S): E03.9 - Hypothyroidism, unspecified (11) Morbid obesity with BMI of 45.0-49.9, adult: CODE(S): E66.01 - Morbid (severe) obesity due to excess calories; Z68.42 - Body mass index [BMI] 45.0-49.9, adult (12) Spina bifida aperta of lumbar spine: CODE(S): Q05.7 - Lumbar spina bifida without hydrocephalus PLAN: Plan Patient was evaluated in the wound center today. A debridement was performed as documented. Wound cultures were obtained of bilateral thigh/legs on 11/28/2021. She was started on doxycycline at her last visit for culture results back due to cellulitis that had. The next day she developed a reaction to the doxycycline so it was stopped. Wound for culture results are back (see HPI) she was started on Levaquin and Augmentin along with a probiotic which she is tolerating well. Wound care - [place] with super absorber/ABD to all the ulcers daily after washing them with soap and water to the left thigh cluster ulcer and the left calf cluster ulcer. Start Ketoconazole ointment 2 times daily to the left posterior thigh lorrie wound to improve the erythema. Encouraged patient to off load as much as possible. Waiting for new wheel chair parts and a [place] cushion that may help with her pressure points from [employer]. She states that she sleeps in a sleep number bed and that works well to relieve her pressure points while in bed. Encouraged increase protein intake and increase Vitamin C to 1000 mg daily. Follow up one week. Call or come in sooner if develop any concerns.
[2021-12-27 09:22] VITALS: BP 133/75; PULSE 110; RESP 18; TEMP 36.3; BMI 48.0
--- NOTE | 2021-12-27 10:31 | PCM.WC.PN ---
History of Present Illness Date of Service: 12/27/21 Chief Complaint: Ulcers right and left thighs and left calf History of Wound: This is a 30-year-old female who was born with spina bifida. She is paraplegic with no sensation below the waist. She presents today for ulcers on her bilateral thighs that started about three months ago. She and her have been treating them with dry gauze, but the drainage has increased recently so she was referred here. She has a medical history of spina bifida , paraplegia, pre diabetic, HgA1c 6.0, hypothyroidism. She states she is in her wheelchair all day caring for her 5 and 1 year old children. Her wheelchair cushion is from 2018. She states her wheelchair has never fit her properly. She has been treated at the wound center in the past for pressure ulcers. Wound cultures obtained on 11/28/21. Right leg ulcers were positive for Acinetobacter baumannii, Proteus mirabilis, Pseudomonas stutzeri, Staphylococcus aureus, Streptococcus agalactiae. Left leg ulcers were positive for Staphylococcus aureus and Proteus mirabilis. She was treated with Levaquin, Augmentin and a probiotic. Wound care - Silvercel with super absorber/ABD to all the ulcers daily after washing them with soap and water to the left thigh cluster ulcer and the left calf cluster ulcer.? Continue Ketoconazole ointment 2 times daily to the left posterior thigh lorrie wound to improve the erythema. Today she denies any fever, chills, nausea or vomiting. She states she has a good appetite. Progress of Wound: Right posterior thigh cluster superior ulcer cluster is improved. Right thigh ulcer is healed. The left posterior proximal thigh cluster ulcers are beefy pink. The left posterior calf ulcer cluster is smaller in size. The excoriated lorrie wound on her left thigh is showing a small amount of improvement since starting the Ketoconazole. She states that her insurance has approved a new cushion and the adaptions to her wheelchair so she isn't getting wounds from the wheel chair. Objective Data Objective Data Vital Signs: Vital Signs Temp Pulse Resp BP 97.3 F L 110 H 18 133/75 H 12/27/21 09:22 12/27/21 09:22 12/27/21 09:22 12/27/21 09:22 Weight: 280 lb Body Mass Index (BMI) 48.0 Charges/Coding Procedures Integumentary 111xxx-113xx: [id number] Josselyn subq tissue 20 sq cm/< Add On Codes: 85631 Josselyn subq tissue add-on (x 13) Debridement Note Debridement Note Wound debrided: posterior thigh ulcer cluster Laterality: Left Wound Grade/Stage: Stage IV Type of Debridement: Excisional debridement Anesthesia Used: 4% Lidocaine Solution Depth: Down to and including healthy tissue, in the subcutaneous layer and to muscle Percentage of wound debrided: 100 Instrument Used: 7mm curette Tissue Removed: Devitalized tissue Severity: Fat Layer Exposed Amount of bleeding with debridement: Mild Bleeding Controlled with: Compression and gauze Patient tolerated procedure: Patient tolerated procedure well Post-Debridement Measurements and Additional Note: Post-Debridement Measurements/Treatment - Nurse 1 - General Ulcer Assessment Start: 12/20/21 09:33 Freq: Status: Active Protocol: .RODOLFO Activity Type Activity Date Activity User E-sign Co-sign Detail Recorded Client Recorded Date Recorded By Document 12/20/21 09:33 RB Desktop 12/20/21 09:38 RB Document 12/27/21 09:22 [id number] 12/27/21 09:36 RB 12/20/21 12/27/21 09:33 09:22 - Today's Visit Information Type of service Follow-up Visit Follow-up Visit (Physician/ASSORTER LAUNDRY (Physician/ASSORTER LAUNDRY ) ) Arrival Mode Wheelchair Wheelchair Transfer Assistance Manual Manual Patient Identification Verified (Name & Yes Yes ) Patient Requires Transmission-Based No No Precautions Height and Weight Body Mass Index (BMI) 48.0 48.0 BMI Classification Obese Obese Vital Signs Temperature (97.8 F-99.1 F) 98 F 97.3 F L Temperature Source Temporal Temporal Pulse Rate (60-100) 113 H 110 H Pulse Location Monitor Monitor Respiratory Rate (12-18) 18 18 Respiratory rate source Observation Observation Blood Pressure (90/60-120/80) 129/69 H 133/75 H Blood Pressure Mean (mm Hg) 89 94 Source Monitor Monitor Position Sitting Semi-Fowlers Blood Pressure Location Right Forearm Left Arm History Since Last Visit- (Skip if this is Patient's initial visit) Have you changed medications since your No No last visit? Any new allergies or adverse reactions No No Had a fall/change in ADL's that may No No increase risk of falls Signs or symptoms of abuse and/or No No neglect since last visit Have you been in the hospital since your No No last visit? Has dressing in place as prescribed Yes Yes Has compression in place as prescribed No No Has offloadiing in place as prescribed No Yes Experienced any changes in pain level or No No management Pain Scale: 0-10 Numeric Is Patient Pain Free? Yes Yes WC - Nurse 1 - General Ulcer Measurement Start: 12/20/21 09:33 Freq: Status: Active Protocol: Activity Type Activity Date Activity User E-sign Co-sign Detail Recorded Client Recorded Date Recorded By Document 12/20/21 09:33 RB Desktop 12/20/21 09:38 RB Document 12/27/21 09:22 RB [id number] 12/27/21 09:36 RB 12/20/21 12/27/21 09:33 09:22 Wound Center Nurse 1 #7- R inferior thigh -Combined with other wound No -Current Size (cm) - Length 0.7 0.9 -Current Size (cm) - Width 0.5 0.4 -Current Size (cm) - Depth 0.2 0.1 -Total Square Cm 0.35 0.36 -Photo Taken No -Tunneling No -Undermining/Tunneling No -Circular Undermining No -Exudate Amt Large Small -Exudate Type Serosanguineous Serosanguineous -Wound Margin Distinct, Flat & Intact Outline Attached -Granulation Amt Medium (34-66%) Small (1-33%) -Granulation Quality [place] Pale -Slough/Fibrin Yes -Necrosis Amt Medium (34-66%) None Present (0 %) -Necrotic Tissue Type Adherent Slough -Structure Exposed N/A N/A -Texture (Lorrie-wound Skin Appearance) Assessed, Scarring Excoriation -Moisture (Lorrie-wound Skin Appearance) Assessed Dry/Scaly -Color (Lorrie-wound Skin Appearance) Assessed No Abnormality -Temperature (Lorrie-wound Skin No Abnormality No Abnormality Appearance) (Pt Warm) (Pt Warm) -Tenderness on Palpation (Lorrie-wound No Skin Appearance) -Ulcer Cleansing Wound Cleanser Soap and Water -Foul Odor after Cleansing No No 8-left posterior calf cluster -Combined with other wound No -Current Size (cm) - Length 3.2 2.5 -Current Size (cm) - Width 1.4 1.5 -Current Size (cm) - Depth 0.1 0.1 -Total Square Cm 4.48 3.75 -Photo Taken No -Tunneling No -Undermining/Tunneling No -Circular Undermining No -Exudate Amt Large Medium -Exudate Type Serosanguineous Serosanguineous -Wound Margin Distinct, Distinct, Outline Outline Attached Attached -Granulation Amt Medium (34-66%) Large (67-100%) -Granulation Quality [place] Red -Slough/Fibrin Yes -Necrosis Amt Medium (34-66%) Small (1-33%) -Necrotic Tissue Type Adherent Slough Adherent Slough -Structure Exposed N/A N/A -Texture (Olrrie-wound Skin Appearance) Assessed, Scarring Excoriation -Moisture (Lorrie-wound Skin Appearance) Assessed Dry/Scaly -Color (Lorrie-wound Skin Appearance) Assessed No Abnormality -Temperature (Lorrie-wound Skin No Abnormality No Abnormality Appearance) (Pt Warm) (Pt Warm) -Tenderness on Palpation (Lorrie-wound No No Skin Appearance) -Ulcer Cleansing Wound Cleanser Soap and Water -Foul Odor after Cleansing No No #6- R UPPER POST THIGH cluster -Combined with other wound No -Current Size (cm) - Length 3.5 3.5 -Current Size (cm) - Width 2.5 2.4 -Current Size (cm) - Depth 0.2 0.4 -Total Square Cm 8.75 8.40 -Photo Taken No -Tunneling No -Circular Undermining No -Exudate Amt Large Medium -Exudate Type Serosanguineous Serosanguineous -Wound Margin Distinct, Distinct, Outline Outline Attached Attached -Granulation Amt Medium (34-66%) Medium (34-66%) -Granulation Quality [place] Red -Slough/Fibrin Yes -Necrosis Amt Medium (34-66%) Medium (34-66%) -Necrotic Tissue Type Adherent Slough Adherent Slough -Structure Exposed N/A N/A -Texture (Lorrie-wound Skin Appearance) Excoriation Scarring -Moisture (Lorrie-wound Skin Appearance) Assessed Dry/Scaly -Color (Lorrie-wound Skin Appearance) Assessed No Abnormality -Temperature (Lorrie-wound Skin No Abnormality No Abnormality Appearance) (Pt Warm) (Pt Warm) -Tenderness on Palpation (Lorrie-wound No Skin Appearance) -Ulcer Cleansing Wound Cleanser Soap and Water -Foul Odor after Cleansing No No #5- L UPPER POST THIGH CLUSTER -Combined with other wound No -Current Size (cm) - Length 21.5 21 -Current Size (cm) - Width 14 13.5 -Current Size (cm) - Depth 0.1 0.2 -Total Square Cm 301.0 283.5 -Photo Taken No -Tunneling No -Undermining/Tunneling No -Circular Undermining No -Exudate Amt Large Medium -Exudate Type Serosanguineous Serosanguineous -Wound Margin Distinct, Distinct, Outline Outline Attached Attached -Granulation Amt Medium (34-66%) Large (67-100%) -Granulation Quality [place] -Slough/Fibrin Yes -Necrosis Amt Medium (34-66%) Small (1-33%) -Necrotic Tissue Type Adherent Slough Adherent Slough -Structure Exposed N/A N/A -Texture (Lorrie-wound Skin Appearance) Assessed, Scarring Excoriation -Moisture (Lorrie-wound Skin Appearance) Assessed Dry/Scaly -Color (Lorrie-wound Skin Appearance) Assessed No Abnormality -Temperature (Lorrie-wound Skin No Abnormality No Abnormality Appearance) (Pt Warm) (Pt Warm) -Tenderness on Palpation (Lorrie-wound No Skin Appearance) -Ulcer Cleansing Wound Cleanser Soap and Water -Foul Odor after Cleansing Yes No WC - Nurse 2 - General Ulcer CM Notes Start: 12/20/21 09:33 Freq: Status: Active Protocol: Activity Type Activity Date Activity User E-sign Co-sign Detail Recorded Client Recorded Date Recorded By Document 12/20/21 09:52 [id number] 12/20/21 10:05 Document 12/27/21 09:47 [id number] 12/27/21 10:00 12/20/21 12/27/21 09:52 09:47 Wound Center Nurse 2 #7- R inferior thigh -Time 09:53 -Correct Patient Yes No -Correct Side, Site, Position Yes No -Correct Procedure Yes No -Procedure Performed Yes No -Type of Procedure Debridement -Clinical Debridement Subcutaneous -Tissue Removed Subcutaneous -Post Debridement (cm) - Length 0.4 -Post Debridement (cm) - Width 0.5 -Post Debridement (cm) - Depth 0.1 -Total Square (Post) (cm) 0.20 -Area of Debridement (cm) - Length 0.4 -Area of Debridement (cm) - Width 0.5 -Total Square (Area) (cm) 0.20 -Tunneling No -Undermining/Tunneling No -Circular Undermining No -Wound/Ulcer Outcome Not Healed Healed- Epithelialized -Ulcer Cleansing Rinsed/ Irrigated with Saline -Foul Odor after Cleansing No -Bioengineered Tissue No -Treatment Response Procedure Tolerated Well -Offloading No -Debridement - Subq, 1st 20sq cm No 8-left posterior calf cluster -Time 09:53 09:55 -Correct Patient Yes Yes -Correct Side, Site, Position Yes Yes -Correct Procedure Yes Yes -Procedure Performed Yes Yes -Type of Procedure Debridement Debridement -Clinical Debridement Subcutaneous Subcutaneous -Tissue Removed Subcutaneous Subcutaneous -Post Debridement (cm) - Length 9 9.0 -Post Debridement (cm) - Width 7 6.8 -Post Debridement (cm) - Depth 0.2 0.1 -Total Square (Post) (cm) 63 61.20 -Area of Debridement (cm) - Length 9 9.0 -Area of Debridement (cm) - Width 7 6.8 -Total Square (Area) (cm) 63 61.20 -Tunneling No No -Undermining/Tunneling No No -Circular Undermining No No -Wound/Ulcer Outcome Not Healed Not Healed -Ulcer Cleansing Rinsed/ Rinsed/ Irrigated with Irrigated with Saline Saline -Foul Odor after Cleansing No No -Bioengineered Tissue No No -Bleeding Controlled with Pressure Pressure -Treatment Response Procedure Procedure Tolerated Well Tolerated Well -Offloading No No -Debridement - Subq, 1st 20sq cm No No #6- R UPPER POST THIGH cluster -Time 09:54 09:50 -Correct Patient Yes Yes -Correct Side, Site, Position Yes Yes -Correct Procedure Yes Yes -Procedure Performed Yes Yes -Type of Procedure Debridement Debridement -Clinical Debridement Subcutaneous Subcutaneous -Tissue Removed Subcutaneous Subcutaneous -Post Debridement (cm) - Length 4.9 4 -Post Debridement (cm) - Width 2.2 9 -Post Debridement (cm) - Depth 0.6 0.4 -Total Square (Post) (cm) 10.78 36 -Area of Debridement (cm) - Length 4.9 4 -Area of Debridement (cm) - Width 2.2 9 -Total Square (Area) (cm) 10.78 36 -Tunneling No No -Undermining/Tunneling No No -Circular Undermining No No -Wound/Ulcer Outcome Not Healed Not Healed -Ulcer Cleansing Rinsed/ Rinsed/ Irrigated with Irrigated with Saline Saline -Foul Odor after Cleansing No No -Bioengineered Tissue No No -Bleeding Controlled with Pressure Pressure -Treatment Response Procedure Procedure Tolerated Well Tolerated Well -Offloading No No -Debridement - Subq, 1st 20sq cm No No #5- L UPPER POST THIGH CLUSTER -Time 09:54 09:57 -Correct Patient Yes Yes -Correct Side, Site, Position Yes Yes -Correct Procedure Yes Yes -Procedure Performed Yes Yes -Type of Procedure Debridement Debridement -Clinical Debridement Subcutaneous Subcutaneous -Tissue Removed Subcutaneous Subcutaneous -Post Debridement (cm) - Length 14.5 13 -Post Debridement (cm) - Width 14.8 15 -Post Debridement (cm) - Depth 1.9 1.6 -Total Square (Post) (cm) 214.60 195 -Area of Debridement (cm) - Length 14.5 13 -Area of Debridement (cm) - Width 14.8 15 -Total Square (Area) (cm) 214.60 195 -Tunneling No -Undermining/Tunneling No -Circular Undermining No -Wound/Ulcer Outcome Not Healed -Ulcer Cleansing Rinsed/ Irrigated with Saline -Foul Odor after Cleansing No -Bioengineered Tissue No No -Bleeding Controlled with Pressure -Treatment Response Procedure Tolerated Well -Offloading No -Debridement - Subq, 1st 20sq cm Yes Yes -Debridement, SubQ, ea addt'l 20sq cm 14 14 or part thereof Pain Scale: 0-10 Numeric Is Patient Pain Free? Yes Yes WC - Nurse 3 - General Ulcer D/C NN Start: 12/20/21 09:33 Freq: Status: Active Protocol: Activity Type Activity Date Activity User E-sign Co-sign Detail Recorded Client Recorded Date Recorded By Document 12/20/21 10:11 [facility] [id number] 12/20/21 10:13 [facility] 12/20/21 10:11 Wound Care Nurse 3 #7- R inferior thigh -Ulcer Cleansing Rinsed/ Irrigated with Saline -Foul Odor after Cleansing No -Primary Dressing Applied Optilok 8x12, Silvercel -Optilok 8x12 0 -Silvercel 0 8-left posterior calf cluster -Ulcer Cleansing Rinsed/ Irrigated with Saline -Foul Odor after Cleansing No -Primary Dressing Applied Optilok 8x12, Silvercel -Optilok 8x12 3 -Silvercel 2 #6- R UPPER POST THIGH cluster -Ulcer Cleansing Rinsed/ Irrigated with Saline -Foul Odor after Cleansing No -Primary Dressing Applied Optilok 8x12, Silvercel -Optilok 8x12 0 -Silvercel 0 #5- L UPPER POST THIGH CLUSTER -Ulcer Cleansing Rinsed/ Irrigated with Saline -Foul Odor after Cleansing No -Primary Dressing Applied Optilok 8x12, Silvercel -Optilok 8x12 0 -Silvercel 0 Treatment Response Procedure Tolerated Well Pain Scale: 0-10 Numeric Is Patient Pain Free? Yes WC - Visit Discharge Discharge Condition Stable Ambulatory Status Wheelchair Transportation Private Auto Additional Wound Wound debrided: posterior leg (calf) ulcer cluster Laterality: Left Wound Grade/Stage: Stage II Type of Debridement: Excisional debridement Anesthesia Used: 4% Lidocaine Solution Depth: Down to and including healthy tissue and in the subcutaneous layer Percentage of wound debrided: 100 Instrument Used: 7mm curette Tissue Removed: Devitalized tissue and slough Severity: Fat Layer Exposed Amount of bleeding with debridement: Mild Bleeding Controlled with: Compression and gauze Patient tolerated procedure: Patient tolerated procedure well Additional Wound Wound debrided: superior posterior thigh ulcer cluster Laterality: Right Wound Grade/Stage: Stage III Type of Debridement: Excisional debridement Anesthesia Used: 4% Lidocaine Solution Depth: Down to and including healthy tissue and in the subcutaneous layer Percentage of wound debrided: 100 Instrument Used: 5mm curette Tissue Removed: Devitalized tissue and slough Severity: Fat Layer Exposed Bleeding Controlled with: Pressure and Compression and gauze Patient tolerated procedure: Patient tolerated procedure well Assessment/Plan Assessment/Plan (1) Decubitus ulcer of left thigh, stage 4: CODE(S): L89.224 - Pressure ulcer of left hip, stage 4 (2) Ulcer of left lower extremity with fat layer exposed: CODE(S): L97.922 - Non-pressure chronic ulcer of unspecified part of left lower leg with fat layer exposed (3) Decubitus ulcer of right thigh, stage 3: CODE(S): L89.213 - Pressure ulcer of right hip, stage 3 (4) Chronic ulcer of left thigh with fat layer exposed: CODE(S): L97.122 - Non-pressure chronic ulcer of left thigh with fat layer exposed (5) Cellulitis of left thigh: CODE(S): L03.116 - Cellulitis of left lower limb (6) Spina bifida: CODE(S): Q05.9 - Spina bifida, unspecified QUALIFIERS: Spinal region: thoracolumbar (7) Paraplegia: CODE(S): G82.20 - Paraplegia, unspecified (8) Edema of leg: CODE(S): R60.0 - Localized edema (9) Leg swelling: CODE(S): M79.89 - Other specified soft tissue disorders (10) Hypothyroidism: CODE(S): E03.9 - Hypothyroidism, unspecified (11) Morbid obesity with BMI of 45.0-49.9, adult: CODE(S): E66.01 - Morbid (severe) obesity due to excess calories; Z68.42 - Body mass index [BMI] 45.0-49.9, adult (12) Spina bifida aperta of lumbar spine: CODE(S): Q05.7 - Lumbar spina bifida without hydrocephalus PLAN: Plan Patient was evaluated in the wound center today.? A debridement was performed as documented. Wound cultures were obtained of bilateral thigh/legs on 11/28/2021.? She was started on doxycycline at her last visit for culture results back due to cellulitis that had.? The next day she developed a reaction to the doxycycline so it was stopped.? Wound for culture results are back (see HPI) she was started on Levaquin and Augmentin along with a probiotic which she is tolerating well. Wound care - Silvercel with super absorber/ABD to all the ulcers daily after washing them with soap and water to the left thigh cluster ulcer and the left calf cluster ulcer.? Continue Ketoconazole ointment 2 times daily to the left posterior thigh lorrie wound to improve the erythema. Encouraged patient to off load as much as possible.? Her insurance has approved some new wheel chair parts and a [place] cushion to help with her pressure points from [place]. She states that she sleeps in a sleep number bed and that works well to relieve her pressure points while in bed. Encouraged increase protein intake and increase Vitamin C to 1000 mg daily. Follow up one week.? Call or come in sooner if develop any concerns.?
[2022-01-10 09:23] VITALS: BP 152/70; PULSE 120; RESP 18; TEMP 36.1; BMI 48.0
--- NOTE | 2022-01-10 12:32 | PCM.WC.PN ---
History of Present Illness Date of Service: 01/10/22 Chief Complaint: Ulcers right and left thighs and left calf History of Wound: This is a 31-year-old female who was born with spina bifida. She is paraplegic with no sensation below the waist. She presents today for ulcers on her bilateral thighs that started about three months ago. She and her have been treating them with dry gauze, but the drainage has increased recently so she was referred here. She has a medical history of spina bifida , paraplegia, pre diabetic, HgA1c 6.0, hypothyroidism. She states she is in her wheelchair all day caring for her 5 and 1 year old children. Her wheelchair cushion is from 2018. She states her wheelchair has never fit her properly. She has been treated at the wound center in the past for pressure ulcers. Wound cultures obtained on 11/28/21. Right leg ulcers were positive for Acinetobacter baumannii, Proteus mirabilis, Pseudomonas stutzeri, Staphylococcus aureus, Streptococcus agalactiae. Left leg ulcers were positive for Staphylococcus aureus and Proteus mirabilis. She was treated with Levaquin, Augmentin and a probiotic. Wound care - Silvercel with super absorber/ABD to all the ulcers daily after washing them with soap and water to the left thigh cluster ulcer and the left calf cluster ulcer.? Continue Ketoconazole ointment 2 times daily to the left posterior thigh lorrie wound to improve the erythema. Today she denies any fever, chills, nausea or vomiting. She states she has a good appetite. Progress of Wound: Right posterior thigh cluster superior ulcer cluster is stable. Right inferior thigh ulcer has reopened. The left posterior proximal thigh cluster ulcers are beefy pink and into the muscle. The left posterior calf ulcer cluster is smaller in size. Her lorrie wound on the left is still excoriated. Objective Data Objective Data Vital Signs: Vital Signs Temp Pulse Resp BP 97 F L 120 H 18 152/70 H 01/10/22 09:23 01/10/22 09:23 01/10/22 09:23 01/10/22 09:23 Weight: 280 lb Body Mass Index (BMI) 48.0 Charges/Coding Procedures Integumentary [id number]: [id number] Josselyn subq tissue 20 sq cm/< Add On Codes: 29517 Josselyn subq tissue add-on (x15) Debridement Note Debridement Note Wound debrided: posterior thigh ulcer cluster Laterality: Left Wound Grade/Stage: Stage IV Type of Debridement: Excisional debridement Anesthesia Used: 4% Lidocaine Solution Depth: Down to and including healthy tissue and in the subcutaneous layer Percentage of wound debrided: 100 Instrument Used: 7mm curette Tissue Removed: Devitalized tissue Severity: Fat Layer Exposed Amount of bleeding with debridement: Mild Bleeding Controlled with: Compression and gauze Patient tolerated procedure: Patient tolerated procedure well Post-Debridement Measurements and Additional Note: Post-Debridement Measurements/Treatment - Nurse 1 - General Ulcer Assessment Start: 12/20/21 09:33 Freq: Status: Active Protocol: EMILIA.Wedding RealitySerena Activity Type Activity Date Activity User E-sign Co-sign Detail Recorded Client Recorded Date Recorded By Document 12/20/21 09:33 Desktop 12/20/21 09:38 RB Document 12/27/21 09:22 RB [id number] 12/27/21 09:36 RB Document 01/10/22 09:23 RB [id number] 01/10/22 09:35 RB 12/20/21 12/27/21 01/10/22 09:33 09:22 09:23 - Today's Visit Information Type of service Follow-up Visit Follow-up Visit Follow-up Visit (Physician/ATHLETIC TEAM PHYSICIAN (Physician/ATHLETIC TEAM PHYSICIAN (Physician/ATHLETIC TEAM PHYSICIAN ) ) ) Arrival Mode Wheelchair Wheelchair Wheelchair Transfer Assistance Manual Manual Manual Transfer Assist (Other) Patient Identification Verified (Name & Yes Yes Yes ) Patient Requires Transmission-Based No No No Precautions Height and Weight Body Mass Index (BMI) 48.0 48.0 48.0 BMI Classification Obese Obese Obese Vital Signs Temperature (97.8 F-99.1 F) 98 F 97.3 F L 97 F L Temperature Source Temporal Temporal Temporal Pulse Rate (60-100) 113 H 110 H 120 H Pulse Location Monitor Monitor Monitor Respiratory Rate (12-18) 18 18 18 Respiratory rate source Observation Observation Observation Blood Pressure (90/60-120/80) 129/69 H 133/75 H 152/70 H Blood Pressure Mean (mm Hg) 89 94 97 Source Monitor Monitor Monitor Position Sitting Semi-Fowlers Sitting Blood Pressure Location Right Forearm Left Arm Left Arm History Since Last Visit- (Skip if this is Patient's initial visit) Have you changed medications since your No No No last visit? Any new allergies or adverse reactions No No No Had a fall/change in ADL's that may No No No increase risk of falls Signs or symptoms of abuse and/or No No No neglect since last visit Have you been in the hospital since your No No No last visit? Has dressing in place as prescribed Yes Yes Yes Has compression in place as prescribed No No No Has offloadiing in place as prescribed No Yes No Experienced any changes in pain level or No No No management Pain Scale: 0-10 Numeric Is Patient Pain Free? Yes Yes Yes WC - Nurse 1 - General Ulcer Measurement Start: 12/20/21 09:33 Freq: Status: Active Protocol: Activity Type Activity Date Activity User E-sign Co-sign Detail Recorded Client Recorded Date Recorded By Document 12/20/21 09:33 RB Desktop 12/20/21 09:38 RB Document 12/27/21 09:22 RB [id number] 12/27/21 09:36 RB Document 01/10/22 09:23 RB [id number] 01/10/22 09:35 RB 12/20/21 12/27/21 01/10/22 09:33 09:22 09:23 Wound Center Nurse 1 #7- R inferior thigh -Combined with other wound No -Current Size (cm) - Length 0.7 0.9 -Current Size (cm) - Width 0.5 0.4 -Current Size (cm) - Depth 0.2 0.1 -Total Square Cm 0.35 0.36 -Photo Taken No -Tunneling No -Undermining/Tunneling No -Circular Undermining No -Exudate Amt Large Small -Exudate Type Serosanguineous Serosanguineous -Wound Margin Distinct, Flat & Intact Outline Attached -Granulation Amt Medium (34-66%) Small (1-33%) -Granulation Quality [place] Pale -Slough/Fibrin Yes -Necrosis Amt Medium (34-66%) None Present (0 %) -Necrotic Tissue Type Adherent Slough -Structure Exposed N/A N/A -Texture (Lorrie-wound Skin Appearance) Assessed, Scarring Excoriation -Moisture (Lorrie-wound Skin Appearance) Assessed Dry/Scaly -Color (Lorrie-wound Skin Appearance) Assessed No Abnormality -Temperature (Lorrie-wound Skin No Abnormality No Abnormality Appearance) (Pt Warm) (Pt Warm) -Tenderness on Palpation (Lorrie-wound No Skin Appearance) -Ulcer Cleansing Wound Cleanser Soap and Water -Foul Odor after Cleansing No No 8-left posterior calf cluster -Combined with other wound No No -Current Size (cm) - Length 3.2 2.5 8.5 -Current Size (cm) - Width 1.4 1.5 1.4 -Current Size (cm) - Depth 0.1 0.1 0.1 -Total Square Cm 4.48 3.75 11.90 -Date of Last Picture (Recall this 01/10/22 field) -Photo Taken No Yes -Epithelialization Small 1-33% -Tunneling No No -Undermining/Tunneling No No -Circular Undermining No No -Exudate Amt Large Medium Large -Exudate Type Serosanguineous Serosanguineous Serosanguineous -Wound Margin Distinct, Distinct, Distinct, Outline Outline Outline Attached Attached Attached -Granulation Amt Medium (34-66%) Large (67-100%) Large (67-100%) -Granulation Quality [place] Red Red -Slough/Fibrin Yes Yes -Necrosis Amt Medium (34-66%) Small (1-33%) Small (1-33%) -Necrotic Tissue Type Adherent Slough Adherent Slough Adherent Slough -Structure Exposed N/A N/A -Texture (Lorrie-wound Skin Appearance) Assessed, Scarring Assessed, Excoriation Scarring -Moisture (Lorrie-wound Skin Appearance) Assessed Dry/Scaly Assessed, Maceration -Color (Lorrie-wound Skin Appearance) Assessed No Abnormality Assessed -Temperature (Lorrie-wound Skin No Abnormality No Abnormality No Abnormality Appearance) (Pt Warm) (Pt Warm) (Pt Warm) -Tenderness on Palpation (Lorrie-wound No No No Skin Appearance) -Ulcer Cleansing Wound Cleanser Soap and Water Soap and Water -Foul Odor after Cleansing No No No #6- R UPPER POST THIGH cluster -Combined with other wound No No -Current Size (cm) - Length 3.5 3.5 15 -Current Size (cm) - Width 2.5 2.4 3.6 -Current Size (cm) - Depth 0.2 0.4 0.4 -Total Square Cm 8.75 8.40 54.0 -Date of Last Picture (Recall this 01/10/22 field) -Photo Taken No Yes -Epithelialization Small 1-33% -Tunneling No No -Undermining/Tunneling No -Circular Undermining No No -Exudate Amt Large Medium Large -Exudate Type Serosanguineous Serosanguineous Serosanguineous -Wound Margin Distinct, Distinct, Distinct, Outline Outline Outline Attached Attached Attached -Granulation Amt Medium (34-66%) Medium (34-66%) Large (67-100%) -Granulation Quality [place] Red Red -Slough/Fibrin Yes Yes -Necrosis Amt Medium (34-66%) Medium (34-66%) Small (1-33%) -Necrotic Tissue Type Adherent Slough Adherent Slough Adherent Slough -Structure Exposed N/A N/A -Texture (Lorrie-wound Skin Appearance) Excoriation Scarring Assessed, Scarring -Moisture (Lorrie-wound Skin Appearance) Assessed Dry/Scaly Assessed -Color (Lorrie-wound Skin Appearance) Assessed No Abnormality Assessed -Temperature (Lorrie-wound Skin No Abnormality No Abnormality No Abnormality Appearance) (Pt Warm) (Pt Warm) (Pt Warm) -Tenderness on Palpation (Lorrie-wound No No Skin Appearance) -Ulcer Cleansing Wound Cleanser Soap and Water Soap and Water -Foul Odor after Cleansing No No No #5- L UPPER POST THIGH CLUSTER -Combined with other wound No No -Current Size (cm) - Length 21.5 21 18 -Current Size (cm) - Width 14 13.5 14.2 -Current Size (cm) - Depth 0.1 0.2 0.1 -Total Square Cm 301.0 283.5 255.6 -Date of Last Picture (Recall this 01/10/22 field) -Photo Taken No Yes -Epithelialization Small 1-33% -Tunneling No No -Undermining/Tunneling No No -Circular Undermining No No -Exudate Amt Large Medium Large -Exudate Type Serosanguineous Serosanguineous Serosanguineous -Wound Margin Distinct, Distinct, Distinct, Outline Outline Outline Attached Attached Attached -Granulation Amt Medium (34-66%) Large (67-100%) Large (67-100%) -Granulation Quality [place] Red -Slough/Fibrin Yes Yes -Necrosis Amt Medium (34-66%) Small (1-33%) Small (1-33%) -Necrotic Tissue Type Adherent Slough Adherent Slough Adherent Slough -Structure Exposed N/A N/A -Texture (Lorrie-wound Skin Appearance) Assessed, Scarring Assessed, Excoriation Scarring -Moisture (Lorrie-wound Skin Appearance) Assessed Dry/Scaly Assessed, Maceration -Color (Lorrie-wound Skin Appearance) Assessed No Abnormality Assessed, Erythema -Temperature (Lorrie-wound Skin No Abnormality No Abnormality No Abnormality Appearance) (Pt Warm) (Pt Warm) (Pt Warm) -Tenderness on Palpation (Lorrie-wound No No Skin Appearance) -Ulcer Cleansing Wound Cleanser Soap and Water Soap and Water -Foul Odor after Cleansing Yes No No WC - Nurse 2 - General Ulcer CM Notes Start: 12/20/21 09:33 Freq: Status: Active Protocol: Activity Type Activity Date Activity User E-sign Co-sign Detail Recorded Client Recorded Date Recorded By Document 12/20/21 09:52 [id number] 12/20/21 10:05 Document 12/27/21 09:47 [id number] 12/27/21 10:00 Document 01/10/22 09:56 Laptop 01/10/22 10:07 12/20/21 12/27/21 01/10/22 09:52 09:47 09:56 Wound Center Nurse 2 #7- R inferior thigh -Time 09:53 -Correct Patient Yes No -Correct Side, Site, Position Yes No -Correct Procedure Yes No -Procedure Performed Yes No -Type of Procedure Debridement -Clinical Debridement Subcutaneous -Tissue Removed Subcutaneous -Post Debridement (cm) - Length 0.4 -Post Debridement (cm) - Width 0.5 -Post Debridement (cm) - Depth 0.1 -Total Square (Post) (cm) 0.20 -Area of Debridement (cm) - Length 0.4 -Area of Debridement (cm) - Width 0.5 -Total Square (Area) (cm) 0.20 -Tunneling No -Undermining/Tunneling No -Circular Undermining No -Wound/Ulcer Outcome Not Healed Healed- Epithelialized -Ulcer Cleansing Rinsed/ Irrigated with Saline -Foul Odor after Cleansing No -Bioengineered Tissue No -Treatment Response Procedure Tolerated Well -Offloading No -Debridement - Subq, 1st 20sq cm No 9-right inferior thigh -Time 09:59 -Correct Patient Yes -Correct Side, Site, Position Yes -Correct Procedure Yes -Procedure Performed Yes -Type of Procedure Debridement -Clinical Debridement Subcutaneous -Tissue Removed Subcutaneous -Post Debridement (cm) - Length 3.1 -Post Debridement (cm) - Width 1.5 -Post Debridement (cm) - Depth 0.1 -Total Square (Post) (cm) 4.65 -Area of Debridement (cm) - Length 3.1 -Area of Debridement (cm) - Width 1.5 -Total Square (Area) (cm) 4.65 -Tunneling No -Undermining/Tunneling No -Circular Undermining No -Wound/Ulcer Outcome Not Healed -Ulcer Cleansing Rinsed/ Irrigated with Saline -Foul Odor after Cleansing No -Bioengineered Tissue No -Bleeding Controlled with Pressure -Treatment Response Procedure Tolerated Well -Offloading No -Debridement - Subq, 1st 20sq cm No 8-left posterior calf cluster -Time 09:53 09:55 09:56 -Correct Patient Yes Yes Yes -Correct Side, Site, Position Yes Yes Yes -Correct Procedure Yes Yes Yes -Procedure Performed Yes Yes Yes -Type of Procedure Debridement Debridement Debridement -Clinical Debridement Subcutaneous Subcutaneous Subcutaneous -Tissue Removed Subcutaneous Subcutaneous Subcutaneous -Post Debridement (cm) - Length 9 9.0 8 -Post Debridement (cm) - Width 7 6.8 1.5 -Post Debridement (cm) - Depth 0.2 0.1 0.1 -Total Square (Post) (cm) 63 61.20 12.0 -Area of Debridement (cm) - Length 9 9.0 8 -Area of Debridement (cm) - Width 7 6.8 1.5 -Total Square (Area) (cm) 63 61.20 12.0 -Tunneling No No No -Undermining/Tunneling No No No -Circular Undermining No No No -Wound/Ulcer Outcome Not Healed Not Healed Not Healed -Ulcer Cleansing Rinsed/ Rinsed/ Rinsed/ Irrigated with Irrigated with Irrigated with Saline Saline Saline -Foul Odor after Cleansing No No No -Bioengineered Tissue No No No -Bleeding Controlled with Pressure Pressure Pressure -Treatment Response Procedure Procedure Procedure Tolerated Well Tolerated Well Tolerated Well -Offloading No No No -Debridement - Subq, 1st 20sq cm No No No #6- R UPPER POST THIGH cluster -Time 09:54 09:50 09:56 -Correct Patient Yes Yes Yes -Correct Side, Site, Position Yes Yes Yes -Correct Procedure Yes Yes Yes -Procedure Performed Yes Yes Yes -Type of Procedure Debridement Debridement Debridement -Clinical Debridement Subcutaneous Subcutaneous Subcutaneous -Tissue Removed Subcutaneous Subcutaneous Subcutaneous -Post Debridement (cm) - Length 4.9 4 5.0 -Post Debridement (cm) - Width 2.2 9 3.4 -Post Debridement (cm) - Depth 0.6 0.4 0.5 -Total Square (Post) (cm) 10.78 36 17.00 -Area of Debridement (cm) - Length 4.9 4 5.0 -Area of Debridement (cm) - Width 2.2 9 3.4 -Total Square (Area) (cm) 10.78 36 17.00 -Tunneling No No No -Undermining/Tunneling No No No -Circular Undermining No No No -Wound/Ulcer Outcome Not Healed Not Healed Not Healed -Ulcer Cleansing Rinsed/ Rinsed/ Rinsed/ Irrigated with Irrigated with Irrigated with Saline Saline Saline -Foul Odor after Cleansing No No No -Bioengineered Tissue No No No -Bleeding Controlled with Pressure Pressure Pressure -Treatment Response Procedure Procedure Procedure Tolerated Well Tolerated Well Tolerated Well -Offloading No No No -Debridement - Subq, 1st 20sq cm No No No #5- L UPPER POST THIGH CLUSTER -Time 09:54 09:57 10:02 -Correct Patient Yes Yes Yes -Correct Side, Site, Position Yes Yes Yes -Correct Procedure Yes Yes Yes -Procedure Performed Yes Yes Yes -Type of Procedure Debridement Debridement Debridement -Clinical Debridement Subcutaneous Subcutaneous Subcutaneous -Tissue Removed Subcutaneous Subcutaneous Subcutaneous -Post Debridement (cm) - Length 14.5 13 16 -Post Debridement (cm) - Width 14.8 15 17.5 -Post Debridement (cm) - Depth 1.9 1.6 2.5 -Total Square (Post) (cm) 214.60 195 280.0 -Area of Debridement (cm) - Length 14.5 13 16 -Area of Debridement (cm) - Width 14.8 15 17.5 -Total Square (Area) (cm) 214.60 195 280.0 -Tunneling No No -Undermining/Tunneling No No -Circular Undermining No No -Wound/Ulcer Outcome Not Healed Not Healed -Ulcer Cleansing Rinsed/ Rinsed/ Irrigated with Irrigated with Saline Saline -Foul Odor after Cleansing No No -Bioengineered Tissue No No No -Bleeding Controlled with Pressure Pressure -Treatment Response Procedure Procedure Tolerated Well Tolerated Well -Offloading No No -Debridement - Subq, 1st 20sq cm Yes Yes Yes -Debridement, SubQ, ea addt'l 20sq cm 14 14 15 or part thereof Pain Scale: 0-10 Numeric Is Patient Pain Free? Yes Yes Yes WC - Nurse 3 - General Ulcer D/C NN Start: 12/20/21 09:33 Freq: Status: Active Protocol: Activity Type Activity Date Activity User E-sign Co-sign Detail Recorded Client Recorded Date Recorded By Document 12/20/21 10:11 [facility] [id number] 12/20/21 10:13 [facility] Document 12/27/21 11:35 DL [id number] 12/27/21 11:38 DL Document 01/10/22 10:32 [facility] [id number] 01/10/22 10:33 BM[facility] 12/20/21 12/27/21 01/10/22 10:11 11:35 10:32 Wound Care Nurse 3 #7- R inferior thigh -Ulcer Cleansing Rinsed/ Irrigated with Saline -Foul Odor after Cleansing No -Primary Dressing Applied Optilok 8x12, Silvercel -Optilok 8x12 0 -Silvercel 0 9-right inferior thigh -Ulcer Cleansing Soap and Water -Foul Odor after Cleansing No -Primary Dressing Applied Optilok 6.5x10, Silvercel -Other Dressing ABD -Primary Dressing Covered/Secured with Secured with Tape -Optilok 6.5x10 1 -Silvercel 1 8-left posterior calf cluster -Ulcer Cleansing Rinsed/ Soap and Water Soap and Water Irrigated with Saline -Foul Odor after Cleansing No No No -Primary Dressing Applied Optilok 8x12, Optilok 6.5x10, Optilok 8x12, Silvercel Silvercel Silvercel -Other Dressing ABD -Primary Dressing Covered/Secured with Secured with Tape -Optilok 6.5x10 1 -Optilok 8x12 3 1 -Silvercel 2 1 1 #6- R UPPER POST THIGH cluster -Ulcer Cleansing Rinsed/ Soap and Water Soap and Water Irrigated with Saline -Foul Odor after Cleansing No No No -Primary Dressing Applied Optilok 8x12, Optilok 6.5x10, Optilok 6.5x10, Silvercel Silvercel Silvercel -Other Dressing ABD -Primary Dressing Covered/Secured with Secured with Tape -Optilok 6.5x10 1 0 -Optilok 8x12 0 -Silvercel 0 1 0 #5- L UPPER POST THIGH CLUSTER -Ulcer Cleansing Rinsed/ Soap and Water Soap and Water Irrigated with Saline -Foul Odor after Cleansing No No No -Primary Dressing Applied Optilok 8x12, Optilok 6.5x10 Optilok 8x12, Silvercel Silvercel -Other Dressing silvercell ABD -Primary Dressing Covered/Secured with Secured with Tape -Optilok 6.5x10 1 -Optilok 8x12 0 0 -Silvercel 0 0 Treatment Response Procedure Procedure Procedure Tolerated Well Tolerated Well Tolerated Well Pain Scale: 0-10 Numeric Is Patient Pain Free? Yes Yes Yes WC - Visit Discharge Discharge Condition Stable Stable Stable Ambulatory Status Wheelchair Wheelchair Wheelchair Transportation Private Auto Private Auto Private Auto Accompanied by [facility] Facility Type Home Health Orders Sent Yes Additional Wound Wound debrided: posterior leg (calf) ulcer cluster Laterality: Left Wound Grade/Stage: Stage II Type of Debridement: Excisional debridement Anesthesia Used: 4% Lidocaine Solution Depth: Down to and including healthy tissue and in the subcutaneous layer Percentage of wound debrided: 100 Instrument Used: 7mm curette Tissue Removed: Devitalized tissue and slough Severity: Fat Layer Exposed Amount of bleeding with debridement: Mild Bleeding Controlled with: Compression and gauze Patient tolerated procedure: Patient tolerated procedure well Additional Wound Wound debrided: superior posterior thigh ulcer cluster Laterality: Right Wound Grade/Stage: Stage III Type of Debridement: Excisional debridement Anesthesia Used: 4% Lidocaine Solution Depth: Down to and including healthy tissue and in the subcutaneous layer Percentage of wound debrided: 100 Instrument Used: 5mm curette Tissue Removed: Devitalized tissue and slough Severity: Fat Layer Exposed Bleeding Controlled with: Pressure and Compression and gauze Patient tolerated procedure: Patient tolerated procedure well Assessment/Plan Assessment/Plan (1) Decubitus ulcer of left thigh, stage 4: CODE(S): L89.224 - Pressure ulcer of left hip, stage 4 (2) Decubitus ulcer of right thigh, stage 3: CODE(S): L89.213 - Pressure ulcer of right hip, stage 3 (3) Chronic ulcer of left thigh with fat layer exposed: CODE(S): L97.122 - Non-pressure chronic ulcer of left thigh with fat layer exposed (4) Cellulitis of left thigh: CODE(S): L03.116 - Cellulitis of left lower limb (5) Spina bifida: CODE(S): Q05.9 - Spina bifida, unspecified QUALIFIERS: Spinal region: thoracolumbar (6) Paraplegia: CODE(S): G82.20 - Paraplegia, unspecified (7) Edema of leg: CODE(S): R60.0 - Localized edema (8) Leg swelling: CODE(S): M79.89 - Other specified soft tissue disorders (9) Hypothyroidism: CODE(S): E03.9 - Hypothyroidism, unspecified (10) Morbid obesity with BMI of 45.0-49.9, adult: CODE(S): E66.01 - Morbid (severe) obesity due to excess calories; Z68.42 - Body mass index [BMI] 45.0-49.9, adult (11) Spina bifida aperta of lumbar spine: CODE(S): Q05.7 - Lumbar spina bifida without hydrocephalus (12) Chronic ulcer of right thigh with fat layer exposed: CODE(S): L97.112 - Non-pressure chronic ulcer of right thigh with fat layer exposed PLAN: Plan Patient was evaluated in the wound center today.? A debridement was performed as documented. Wound cultures were obtained of bilateral thigh/legs on 11/28/2021.? She was started on doxycycline at her last visit for culture results back due to cellulitis that had.? The next day she developed a reaction to the doxycycline so it was stopped.? Wound for culture results are back (see HPI) she was started on Levaquin and Augmentin along with a probiotic which she is tolerating well. Wound care - Silvercel with super absorber/ABD to all the ulcers daily after washing them with soap and water to the left thigh cluster ulcer and the left calf cluster ulcer.? Aquaphor/Vaseline to the left thigh lorire wound to improve the erythema, the moisture from the drainage may be macerating the lorrie wound. Encouraged patient to off load as much as possible.? Her insurance has approved some new wheel chair parts and a ROKO cushion to help with her pressure points from [place]. She states that she sleeps in a sleep number bed and that works well to relieve her pressure points while in bed. Encouraged increase protein intake and increase Vitamin C to 1000 mg daily. She may benefit from an operative debridement of the left superior thigh cluster to remove the nonviable tissue and make it easier for wound care with either a wound VAC or Dakin's moistened gauze. Follow up one week.? Call or come in sooner if develop any concerns.?
== END 2022-01-15 23:59 | disposition home or self-care (01) ==
LOC: WC 09:00
PROVIDERS: PCP Student in an Organized Health Care Education/Training Program; Visit Provider Nurse Practitioner Family
DX: L89.894 Pressure ulcer of other site, stage 4 (principal); L89.893 Pressure ulcer of other site, stage 3; G82.20 Paraplegia, unspecified; L97.222 Non-pressure chronic ulcer of left calf with fat layer exposed; Q05.7 Lumbar spina bifida without hydrocephalus; E66.01 Morbid (severe) obesity due to excess calories; Z68.42 Body mass index [BMI] 45.0-49.9, adult; L03.116 Cellulitis of left lower limb; R60.0 Localized edema; E03.9 Hypothyroidism, unspecified; R73.03 Prediabetes
CPT/HCPCS: 11042; 11045

== ENCOUNTER 2022-08-01 09:13 | Outpatient (RCR) | payer BC, SELFPAY ==
[2022-01-16 00:13] VITALS: BP 152/70; PULSE 120; RESP 18; TEMP 36.1; BMI 48.0
[2022-08-01 09:15] VITALS: BP 157/71; PULSE 120; RESP 16; TEMP 36.8; BMI 48.0
--- NOTE | 2022-08-01 10:18 | HP.PCM_ITS ---
History of Present Illness Date of Service: 08/01/22 Chief Complaint: Ulcers right and left thighs and left calf History of Wound: This is a 31-year-old female who was born with spina bifida. She is paraplegic with no sensation below the waist. She presents today for ulcers on her bilateral thighs that are chronic . She also developed in the right plantar foot a sore that they noticed about 2 weeks ago had extra a lot of skin on it and then became wet and the took the skin off it fell off and had an open sore. Now the scab is necrotic and smells and she is open down to her fascia of her foot. She has a medical history of spina bifida , paraplegia, pre diabetic,hypothyroidism. She states she is in her wheelchair all day caring for her 2 children. Her wheelchair cushion is from 2018. She states her wheelchair has never fit her properly. She has been treated at the wound center in the past for pressure ulcers. We did obtain wound cultures today of the right foot and will have her hospitalized. The foot has a very bad odor. Wound care -she is still using Silvercel with super absorber/ABD to all the ulcers daily after washing them with soap and water to the left thigh cluster ulcer and the left calf cluster ulcer.? Also on the right thigh cluster and right superior and medial buttocks clusters Today she denies any fever, chills, nausea or vomiting. She states she has a good appetite. Patient is grossly obese. Patient will be referred to the emergency room for the foot [facility] Medical History Anticoagulated Cellulitis of right foot Decubitus ulcer of dorsum of foot, stage 3 Decubitus ulcer of right heel, stage 3 Decubitus ulcer, heel, left, unstageable Edema of leg Foot ulcer, left Foot ulcer, right H/O gestational diabetes mellitus, not currently Hypothyroidism Morbid obesity with BMI of 45.0-49.9, adult Mother currently breast-feeding Paraplegia Pressure ulcer of right ankle, stage 2 Spina bifida Spina bifida aperta of lumbar spine Ulcer of foot Ulcer of right ankle Home Medications levothyroxine 75 mcg tablet 88 mcg PO DAILY 04/01/14 [History Last Taken Unknown] metoprolol tartrate 25 mg tablet 25 mg PO BID 08/01/22 [History Last Taken Unknown] Allergy/AdvReac Type Severity Reaction Status Date / Time adhesive Allergy Rash Verified 11/28/21 14:42 doxycycline Allergy Rash Verified 11/29/21 09:05 Latex, Natural Rubber Allergy Hives Verified 11/28/21 14:42 vancomycin Allergy Anaphylaxis Verified 08/01/22 09:55 Surgical History History of History of foot surgery Previous back surgery Social History Smoking Status: Never smoker ROS Constitutional Constitutional: Reports systems reviewed and no addt'l complaints, except as documented Eyes Eyes: Reports systems reviewed and no addt'l complaints, except as documented ENT HEENT: Reports systems reviewed and no addt'l complaints, except as documented Cardiovascular Cardiovascular: Reports systems reviewed and no addt'l complaints, except as documented Respiratory/Chest Respiratory/Chest: Reports systems reviewed and no addt'l complaints, except as documented Gastrointestinal Gastrointestinal: Reports systems reviewed and no addt'l complaints, except as documented Genitourinary Genitourinary: Reports systems reviewed and no addt'l complaints, except as documented Musculoskeletal Musculoskeletal: Reports systems reviewed and no addt'l complaints, except as documented Integumentary Integumentary: Reports rash, wounds and other Details: Right plantar foot ulcer left thigh cluster left gluteal cluster right gluteal cluster right medial and superior thigh cluster Psychiatric Psychiatric: Reports systems reviewed and no addt'l complaints, except as documented Vital Signs Vital Signs Vital Signs: 08/01/22 09:15 Temperature 98.2 F Temperature Source Temporal Pulse Rate 120 H Respiratory Rate 16 Blood Pressure 157/71 H Blood Pressure Mean 99 Blood Pressure Source Monitor Blood Pressure Position Sitting Blood Pressure Location Right Forearm Oxygen Delivery Method Room Air Weight Weight: 280 lb Body Mass Index (BMI) 48.0 Physical Exam Const oriented x3 General Appearance: cooperative HEENT normocephalic Head and Scalp: normal to inspection Face and Sinus: normal facial exam Nose: external nose normal Eyes PERRL General Eye: normal appearance of both eyes Neck full ROM General: normal visual inspection Resp normal respiratory effort Effort and Inspection: able to speak in complete sentences Auscultation: clear to auscultation bilaterally Cardio regular rate and regular rhythm Palpation: normal PMI Rate: regular rate Rhythm: regular rhythm Extremity Negative for no pedal edema General Extremity: normal exam except as noted Skin Skin Narrative: Right plantar foot ulcer down to fascia very odiferous eschar covering left thigh cluster left gluteal cluster right thigh cluster superior and medial right gluteal cluster Neuro oriented x3 Psych Appearance: grossly normal Speech: normal speech Thought Content: normal thought content Judgement: judgement good Debridement Note Debridement Note Wound debrided: Right plantar foot decubitus ulcer Wound Grade/Stage: Stage IV Type of Debridement: Excisional debridement Anesthesia Used: 5% Lidocaine Gel Depth: to muscle Percentage of wound debrided: 100 Instrument Used: 7mm curette, #15 blade and Forceps Tissue Removed: Necrotic tissue Severity: Fat Layer Exposed Amount of bleeding with debridement: None Bleeding Controlled with: Pressure Patient tolerated procedure: Patient tolerated procedure well Post-Debridement Measurements and Additional Note: Post-Debridement Measurements/Treatment - Nurse 1 - General Ulcer Assessment Start: 08/01/22 09:15 Freq: Status: Active Protocol: NIR Activity Type Activity Date Activity User E-sign Co-sign Detail Recorded Client Recorded Date Recorded By Document 08/01/22 09:15 [facility] [id number] 08/01/22 09:54 [facility] 08/01/22 09:15 - Today's Visit Information Type of service Initial Visit Arrival Mode Wheelchair Transfer Assistance Other Transfer Assist (Other) slide board Accompanied by Patient Identification Verified (Name & Yes ) Patient Requires Transmission-Based No Precautions Height and Weight Body Mass Index (BMI) 48.0 BMI Classification Obese Vital Signs Temperature (97.8 F-99.1 F) 98.2 F Temperature Source Temporal Pulse Rate (60-100) 120 H Pulse Location Monitor Respiratory Rate (12-18) 16 Respiratory rate source Observation Oxygen Delivery Method Room Air Blood Pressure (90/60-120/80) 157/71 H Blood Pressure Mean 99 Source Monitor Position Sitting Blood Pressure Location Right Forearm History Since Last Visit- (Skip if this is Patient's initial visit) Left Footwear Slipper Right Footwear Slipper Pain Scale: 0-10 Numeric Is Patient Pain Free? Yes Lower Extremity Assessment/ Foot Assessment/ Toe Nail Assessment Right -Posterior Tibial Palpable No -Posterior Tibial Doppler Multiphasic -Dorsalis Pedis Palpable No -Dorsalis Pedis Doppler Multiphasic -Extremity Color Pale -Hair Growth on Legs No -Hair Growth on Toes No -Other Deformity Yes: SPINA BIFIDA -Thick Yes -Discolored Yes -Deformed Yes -Improper Length & Hygeine Yes Left -Lower Extremity Comment (If N/A Above PULSES HAMPERED ) BY 3+ PUFFY EDEMA LEFT FOOT AND ANKLE -Posterior Tibial Palpable No -Posterior Tibial Doppler Inaudible -Dorsalis Pedis Palpable No -Dorsalis Pedis Doppler Inaudible -Extremity Color Pale -Hair Growth on Legs No -Hair Growth on Toes No -Other Deformity Yes: SPINA BIFIDA -Thick Yes -Discolored Yes -Deformed Yes -Improper Length & Hygeine Yes Neuropathy Assessment Feet - Top Side and Bottom <Entered> (a) (a) 1 - - - Nurse 1 - General Ulcer Measurement Start: 08/01/22 09:15 Freq: Status: Active Protocol: Activity Type Activity Date Activity User E-sign Co-sign Detail Recorded Client Recorded Date Recorded By Document 08/01/22 09:15 [facility] [id number] 08/01/22 09:54 [facility] 08/01/22 09:15 Wound Center Nurse 1 #15- R POST THIGH MEDIAL -Combined with other wound No -Current Size (cm) - Length 1.3 -Current Size (cm) - Width 0.5 -Current Size (cm) - Depth 0.1 -Total Square Cm 0.65 -Date of Last Picture (Recall this 08/01/22 field) -Photo Taken Yes -Epithelialization None Present -Tunneling No -Undermining/Tunneling No -Circular Undermining No -Exudate Amt Medium -Exudate Type Serosanguineous -Wound Margin Distinct, Outline Attached -Granulation Amt Medium (34-66%) -Granulation Quality Red -Slough/Fibrin Yes -Necrosis Amt Medium (34-66%) -Necrotic Tissue Type Adherent Slough -Texture (Lorrie-wound Skin Appearance) Assessed, Scarring -Moisture (Lorrie-wound Skin Appearance) Assessed -Color (Lorrie-wound Skin Appearance) Assessed, Erythema -Temperature (Lorrie-wound Skin No Abnormality Appearance) (Pt Warm) -Tenderness on Palpation (Lorrie-wound No Skin Appearance) -Ulcer Cleansing Soap and Water -Foul Odor after Cleansing No #14- R POST THIGH SUPERIOR -Combined with other wound No -Current Size (cm) - Length 0.7 -Current Size (cm) - Width 0.2 -Current Size (cm) - Depth 0.1 -Total Square Cm 0.14 -Date of Last Picture (Recall this 08/01/22 field) -Photo Taken Yes -Epithelialization None Present -Tunneling No -Undermining/Tunneling No -Circular Undermining No -Exudate Amt Medium -Exudate Type Serosanguineous -Wound Margin Distinct, Outline Attached -Granulation Amt Medium (34-66%) -Granulation Quality Red -Slough/Fibrin Yes -Necrosis Amt Medium (34-66%) -Necrotic Tissue Type Adherent Slough -Texture (Lorrie-wound Skin Appearance) Assessed, Scarring -Moisture (Lorrie-wound Skin Appearance) Assessed -Color (Lorrie-wound Skin Appearance) Assessed, Erythema -Temperature (Lorrie-wound Skin No Abnormality Appearance) (Pt Warm) -Tenderness on Palpation (Lorrie-wound No Skin Appearance) -Ulcer Cleansing Soap and Water -Foul Odor after Cleansing No #13- R POST THIGH CLUSTER -Combined with other wound No -Current Size (cm) - Length 13 -Current Size (cm) - Width 9.5 -Current Size (cm) - Depth 0.1 -Total Square Cm 123.5 -Date of Last Picture (Recall this 08/01/22 field) -Photo Taken Yes -Epithelialization None Present -Tunneling No -Undermining/Tunneling No -Circular Undermining No -Exudate Amt Large -Exudate Type Serosanguineous -Wound Margin Distinct, Outline Attached -Granulation Amt Large (67-100%) -Granulation Quality Red -Slough/Fibrin Yes -Necrosis Amt Small (1-33%) -Necrotic Tissue Type Adherent Slough -Texture (Lorrie-wound Skin Appearance) Assessed, Scarring -Moisture (Lorrie-wound Skin Appearance) Assessed -Color (Lorrie-wound Skin Appearance) Assessed, Erythema -Temperature (Lorrie-wound Skin No Abnormality Appearance) (Pt Warm) -Tenderness on Palpation (Lorrie-wound No Skin Appearance) -Ulcer Cleansing Soap and Water -Foul Odor after Cleansing No #12- L GLUTEAL FOLD CLUSTER -Combined with other wound No -Current Size (cm) - Length 4.4 -Current Size (cm) - Width 3 -Current Size (cm) - Depth 0.3 -Total Square Cm 13.2 -Date of Last Picture (Recall this 08/01/22 field) -Photo Taken No -Epithelialization None Present -Tunneling No -Undermining/Tunneling No -Circular Undermining No -Exudate Amt Medium -Exudate Type Serosanguineous -Wound Margin Distinct, Outline Attached -Granulation Amt Medium (34-66%) -Granulation Quality Red -Slough/Fibrin Yes -Necrosis Amt Medium (34-66%) -Necrotic Tissue Type Adherent Slough -Texture (Lorrie-wound Skin Appearance) Assessed, Scarring -Moisture (Lorrei-wound Skin Appearance) Assessed -Color (Lorrie-wound Skin Appearance) Assessed -Temperature (Lorrie-wound Skin No Abnormality Appearance) (Pt Warm) -Tenderness on Palpation (Lorrie-wound No Skin Appearance) -Ulcer Cleansing Soap and Water -Foul Odor after Cleansing No #11- L POST THIGH CLUSTER -Combined with other wound No -Current Size (cm) - Length 27 -Current Size (cm) - Width 17 -Current Size (cm) - Depth 0.2 -Total Square Cm 459 -Date of Last Picture (Recall this 08/01/22 field) -Photo Taken Yes -Epithelialization None Present -Tunneling No -Undermining/Tunneling No -Circular Undermining No -Exudate Amt Large -Exudate Type Serosanguineous -Wound Margin Distinct, Outline Attached -Granulation Amt Large (67-100%) -Granulation Quality Red -Slough/Fibrin Yes -Necrosis Amt Small (1-33%) -Necrotic Tissue Type Adherent Slough -Texture (Lorrie-wound Skin Appearance) Assessed, Scarring -Moisture (Lorrie-wound Skin Appearance) Assessed -Color (Lorrie-wound Skin Appearance) Assessed, Erythema -Temperature (Lorrie-wound Skin No Abnormality Appearance) (Pt Warm) -Tenderness on Palpation (Lorrie-wound No Skin Appearance) -Ulcer Cleansing Soap and Water -Foul Odor after Cleansing No #10- R LAT PLANTAR FOOT -Combined with other wound No -Current Size (cm) - Length 7.3 -Current Size (cm) - Width 5 -Current Size (cm) - Depth 0.7 -Total Square Cm 36.5 -Date of Last Picture (Recall this 08/01/22 field) -Photo Taken Yes -Epithelialization None Present -Tunneling No -Undermining/Tunneling No -Circular Undermining No -Exudate Amt Medium -Exudate Type Serosanguineous -Wound Margin Distinct, Outline Attached -Granulation Amt Medium (34-66%) -Granulation Quality Red -Slough/Fibrin Yes -Necrosis Amt Medium (34-66%) -Necrotic Tissue Type Eschar -Texture (Lorrie-wound Skin Appearance) Assessed, Scarring -Moisture (Lorrie-wound Skin Appearance) Assessed, Maceration,Dry/ Scaly -Color (Lorrie-wound Skin Appearance) Assessed, Erythema -Temperature (Lorrie-wound Skin No Abnormality Appearance) (Pt Warm) -Tenderness on Palpation (Lorrie-wound No Skin Appearance) -Ulcer Cleansing Soap and Water -Foul Odor after Cleansing No Lower Limb Edema Present Yes Right Calf (cm) 41.5 Right Ankle (cm) 28.5 Left Calf (cm) 46.9 Left Ankle (cm) 32.1 Assessment/Plan Assessment/Plan (1) Spina bifida: CODE(S): Q05.9 - Spina bifida, unspecified QUALIFIERS: Spinal region: thoracolumbar (2) Paraplegia: CODE(S): G82.20 - Paraplegia, unspecified (3) Chronic ulcer of right thigh with fat layer exposed: CODE(S): L97.112 - Non-pressure chronic ulcer of right thigh with fat layer exposed (4) Chronic ulcer of left thigh with fat layer exposed: CODE(S): L97.122 - Non-pressure chronic ulcer of left thigh with fat layer exposed (5) Hypothyroidism: CODE(S): E03.9 - Hypothyroidism, unspecified (6) Right foot ulcer: CODE(S): L97.519 - Non-pressure chronic ulcer of other part of right foot with unspecified severity PLAN: Patient referred to the hospital for surgical debridement and possible osteomyelitis (7) Morbid obesity with BMI of 45.0-49.9, adult: CODE(S): E66.01 - Morbid (severe) obesity due to excess calories; Z68.42 - Body mass index [BMI] 45.0-49.9, adult
== END 2022-08-15 23:59 | disposition home or self-care (01) ==
LOC: WC 09:13
PROVIDERS: PCP Student in an Organized Health Care Education/Training Program; Referring Provider Student in an Organized Health Care Education/Training Program; Visit Provider Nurse Practitioner
DX: L97.512 Non-pressure chronic ulcer of other part of right foot with fat layer exposed (principal); G82.20 Paraplegia, unspecified; L97.122 Non-pressure chronic ulcer of left thigh with fat layer exposed; L97.112 Non-pressure chronic ulcer of right thigh with fat layer exposed; Q05.9 Spina bifida, unspecified; E66.01 Morbid (severe) obesity due to excess calories; Z68.42 Body mass index [BMI] 45.0-49.9, adult; E03.9 Hypothyroidism, unspecified; G62.9 Polyneuropathy, unspecified; R60.0 Localized edema
CPT/HCPCS: 11043; 11046; 87070; 87075; 87077; 87186; 87205; 99213; G0463